=== PATIENT | female | born 1955 ===

== ENCOUNTER 2016-08-20 16:21 | Inpatient (IN) ==
--- NOTE | 2016-08-20 17:29 | Emergency Department Note ---
Yolande Lambert Mantricia, am scribing for, and in the presence of, Blayne Martinez MD 16:58. IMichelle Phillip K, MD, personally performed the services described in this documentation, ascribed by Xavier Lanier in my presence, and it is both accurate and complete [id number] . Arrival - Arrival Chief Complaint: Extremity Problem Stated Complaint: TRANSFER [facility] ED Nursing Triage Note: PT TRANSFERRED FROM [facility] FOR EVALUATION OF REDNESS/ CELLULITIS TO [facility]. PT FELL LAST FRIDAY AND HAS HAD INCREASING PAIN. ON ARRIVAL TO [facility] ER PT WAS FOUND TO HAVE O2 SAT IN 80'S AND TROPONIN OF 1.0. PT DOES HEMODIALYSIS M,W,F. Mode of Arrival: Stretcher Limitations: No Limitations Source: Patient Time Seen by Provider: 08/20/16 16:42 - History of Present Illness HPI Narrative: Pt is a 61 y/o female arriving to ED by EMS as a transfer from [place] for further evaluation of swollen LLE that onset 2 days ago. Pt states that she fell 5 days ago and the swelling and pain began 3 days after the fall. She had a normal white blood cell count at [place] and states that she dialyzes every M, W,F. She reports no other concerns. Onset (ago): day(s) Consistency: constant Severity: mild Severity scale (1-10): 3 Quality: aching Allergies/Adverse Reactions: Allergies Allergy/AdvReac Type Severity Reaction Status Date / Time cephalexin [From Keflex] Allergy RASH Verified 08/20/16 16:34 ciprofloxacin Allergy RASH Verified 08/20/16 16:34 Home Medications: Home Medications Medication Instructions Recorded Confirmed Type Aspirin [Ecotrin] 81 mg PO DAILY 08/11/14 10/18/15 History Losartan [Cozaar] 100 mg PO BID 08/11/14 10/18/15 History Minoxidil [Loniten] 2.5 mg PO DAILY 08/11/14 10/18/15 History hydrALAZINE TAB [Apresoline Tab] 100 mg PO BID 08/11/14 10/18/15 History Carvedilol [Coreg] 3.125 mg PO BID tablet 08/15/14 10/18/15 Rx Docusate Sodium Cap [Colace Cap] 100 mg PO BID capsule 08/15/14 10/18/15 Rx Epoetin Ash [Epogen] 18,000 unit IV .DIALYSIS vial 08/15/14 10/18/15 Rx Folic Acid Tab 1 mg PO DAILY tablet 08/15/14 10/18/15 Rx Gabapentin Cap/Tab [Neurontin 100 mg PO DAILY capsule 08/15/14 10/18/15 Rx Cap/Tab] Simvastatin [Zocor] 40 mg PO BEDTIME tablet 08/15/14 10/18/15 Rx Azithromycin Tab [Zithromax Tab] 250 mg PO DAILY #3 tablet 03/02/15 10/18/15 Rx Calcium Acetate [Phoslo] 2,001 mg PO TID W/MEALS 10/18/15 10/18/15 History Insulin Detemir [Levemir] 30 unit SUBCUT BEDTIME 10/18/15 10/18/15 History Review of System - Review of System 12 point system: reviewed and no additional remarkable complaints except as stated - Review of System Constitutional: Absent: chills, diaphoresis, fever Eyes: Absent: discharge, pain Head/Ears/Nose/Throat: Absent: earache, epistaxis Respiratory: Absent: cough, respiratory distress, wheezing Cardiovascular: Absent: chest pain, palpitations, dyspnea on exertion Gastrointestinal: Absent: abdominal pain, nausea, vomiting, diarrhea Genitourinary female: Absent: abnormal menses, dysuria Musculoskeletal: Present: leg pain (swelling). Absent: arm pain, back pain, neck pain Skin: Present: change in color (redness to LLE). Absent: rash, lesions Neurological: Absent: headache, weakness Psychiatric: Absent: anxiety, depression Medical,Surgical,& Family Hx - Medical History Cardio: History of: CHF, Hypertension Neurology: No history of: Seizures HEENT: History of: Ear Problem (ears pop) Endocrine: History of: Diabetes Mellitus (IDDM), Dyslipidemia Respiratory: History of: Asthma Hematology: History of: Anemia - Surgical History Abdominal Surgeries: Surgical HX of: EGD Reproductive Surgeries: Surgical HX of;: Hysterectomy - Family History Family History: Reports;: Family Cancer (sister), Family Diabetes (all of family ), Family Hypertension (all of family), Family Stroke (mother) Denies;: Family Anesthesia Reaction, Family Heart Disease, Family Psychiatric Problems - Social History Smoking Status: Never smoker Frequency of Alcohol Use: None Type of Drug Use: None Exam Vital Signs: Vital Signs Temperature 98.4 F 08/20/16 16:21 Pulse Rate 54 L 08/20/16 16:21 Respiratory Rate 18 08/20/16 16:21 Blood Pressure 156/58 08/20/16 16:21 O2 Sat by Pulse Oximetry 95 08/20/16 16:21 - General General appearance: alert, in no apparent distress - Head Head exam: Present: atraumatic, normocephalic, normal inspection - Eye Eye exam: Present: normal appearance, PERRL, EOMI - ENT ENT exam: Present: normal exam, normal oropharynx, mucous membranes moist, TM's normal bilaterally, normal external ear exam - Neck Neck exam: Present: normal inspection, full ROM, trachea midline. Absent: tenderness - Chest Chest inspection: Present: normal inspection, symmetric chest wall rise - Respiratory Respiratory exam: Present: normal lung sounds bilaterally - Cardiovascular Cardiovascular exam: Present: normal rhythm, bradycardia, normal heart sounds - Abdominal Exam Abdominal exam: Present: soft, normal bowel sounds. Absent: distention, tenderness, guarding, rebound - Extremities Exam Extremities exam: Present: tenderness (LLE), normal capillary refill, other ( swollen LLE) - Back Exam Back exam: Present: normal inspection, full ROM. Absent: tenderness - Neurological Exam Neurological exam: Present: alert, oriented X3, CN II-XII intact, normal gait, reflexes normal - Psychiatric Psychiatric exam: Present: normal affect, normal mood - Skin Skin exam: Present: warm (increased warmth knee-down), dry, intact, erythema ( LLE) Course Course Narrative: Patient discussed with the hospitalist. Results - Labs Lab Results: I have reviewed the patients labs (Patient's labs from [facility] reviewed. White blood count was normal.) - Diagnostic Findings Procedure: Ultrasound: image reviewed by me (No DVT) Disposition Clinical Impression: Cellulitis, End stage renal disease Case discussed with: patient Disposition: Still a Patient Condition: Guarded Additional Instructions: Admit to the hospitalist for IV antibiotics.
--- NOTE | 2016-08-20 17:39 | Ultrasound Report ---
Referring physician: Blayne Martinez Exam: Left lower extremity venous ultrasound Date: August 20, 2016 Comparison: Bilateral lower extremity venous ultrasound November 01, 2008 Reason: Edema left leg Technique: Duplex scan of the left lower extremity was performed using B-Mode/grayscale imaging, compression, Doppler spectral analysis and color flow. Ultrasound images were captured and stored. Findings: There is no evidence of thrombus within the left common femoral vein, greater saphenous vein, superficial femoral vein or popliteal vein. Normal compression and augmentation are present throughout. Normal color flow and spectral analysis are observed. Impression: No evidence of deep venous thrombosis within the left lower extremity. PROCEDURE INTERPRETED AT [facility] DEPARTMENT OF RADIOLOGY Final Report Signed by: Dr. Leonel Del Rosario
--- NOTE | 2016-08-20 17:48 | Hospitalist History & Physical ---
Assessment and Plan (1) Cellulitis Status: Acute Current Visit: Yes (2) End stage renal disease Problem details: No acute indication for HD today. Next scheduled for Friday. Status: Chronic Current Visit: Yes (3) Thrombocytopenia Status: Acute Current Visit: No (4) Anemia Status: Chronic Current Visit: No (5) Diabetes mellitus Status: Chronic Current Visit: No (6) Hypertension Status: Chronic Current Visit: No (7) Increase in troponins Status: Acute Assessment and plan: Our plan for this patient will be admitting the patient to a monitored/ telemetry bed. Repeating cardiac enzymes. following up on repeat labs performed in our emergency room. Consult nephrology for end-stage renal disease. IV antibiotics for her cellulitis. Continue home meds insulin sliding scale as needed. Per review of records patient's been thrombocytopenic for years this is a chronic medical problem for her Current Visit: Yes History of Present Illness Chief complaint: Lower extremity swelling and erythema History of present illness: Ms. Lujan is a 61 year old female with past medical history significant for end- stage renal disease, diabetes and hypertension who was in her normal state of health until last . Patient at that time reports that she fell and hurt her leg. It did not start really bothering her till Friday. She says that it became a little red and felt hot. She reports that she has mild shortness of breath. She patient denies any chest pain. Patient went to [facility] today. Patient was diagnosed with cellulitis and a bump in her troponins. She was sent up here for further evaluation. Labs ordered here still pending I was consulted to admit her through the emergency room. Home Medications Medication Instructions Recorded Confirmed Type Losartan [Cozaar] 50 mg PO DAILY 08/11/14 08/20/16 History Minoxidil [Loniten] 2.5 mg PO DAILY 08/11/14 08/20/16 History Folic Acid Tab 1 mg PO DAILY tablet 08/15/14 08/20/16 Rx Bacitracin Oint 1 applic TOP BID 08/20/16 08/20/16 History Gabapentin Cap/Tab [Neurontin 100 mg PO TID 08/20/16 08/20/16 History Cap/Tab] Polyethylene Glycol Powder 17 gm PO DAILY PRN 08/20/16 08/20/16 History [Miralax] Propylene Glycol/Peg 400 [Systane 1 drop BOTH EYES QID 08/20/16 08/20/16 History Ultra] Simvastatin 40 mg PO BEDTIME 08/20/16 08/20/16 History Allergies Allergy/AdvReac Type Severity Reaction Status Date / Time cephalexin [From Keflex] Allergy RASH Verified 08/20/16 16:34 ciprofloxacin Allergy RASH Verified 08/20/16 16:34 Medical,Surgical,& Family Hx - Medical History Cardio: History of: CHF, Hypertension Neurology: No history of: Seizures HEENT: History of: Ear Problem (ears pop) Endocrine: History of: Diabetes Mellitus (IDDM), Dyslipidemia Respiratory: History of: Asthma Hematology: History of: Anemia - Surgical History Abdominal Surgeries: Surgical HX of: EGD Reproductive Surgeries: Surgical HX of;: Hysterectomy - Family History Family History: Reports;: Family Cancer (sister), Family Diabetes (all of family ), Family Hypertension (all of family), Family Stroke (mother) Denies;: Family Anesthesia Reaction, Family Heart Disease, Family Psychiatric Problems - Social History Smoking Status: Never smoker Frequency of Alcohol Use: None Type of Drug Use: None 12 point system: reviewed and no additional remarkable complaints except as stated Exam - Constitutional Vitals: - General General appearance: alert, in no apparent distress very hard of hearing - Head Head exam: Present: atraumatic, normocephalic, normal inspection - Eye Eye exam: Present: normal appearance, PERRL, EOMI - ENT ENT exam: Present: normal exam, normal oropharynx, mucous membranes moist - Neck Neck exam: Present: normal inspection, full ROM, trachea midline. Absent: tenderness - Chest Chest inspection: Present: normal inspection, symmetric chest wall rise - Respiratory Respiratory exam: Present: normal lung sounds bilaterally - Cardiovascular Cardiovascular exam: Present: normal rhythm, bradycardia, normal heart sounds - Abdominal Exam Abdominal exam: Present: soft, normal bowel sounds. - Extremities Exam Extremities exam: Present: Patient's left lower extremity is tender it does appear to be with some erythema present - Back Exam Back exam: Present: normal inspection, full ROM. Absent: tenderness - Neurological Exam Neurological exam: Present: alert, oriented X3, CN II-XII intact, normal gait, reflexes normal - Psychiatric Psychiatric exam: Present: normal affect, normal mood - Skin Skin exam: Present: Her left lower extremity does feel warm from the knee down Results - Labs CBC & BMP: 08/20/16 17:44 Labs: Labs from outside facility displayed white count 8.0 hemoglobin 11.3 hematocrit 27.2 platelets 50 CK-MB 0.1 troponin I 0.0 calcium 9.5 creatinine 5.0 BUN 20 myoglobin 236 sodium 144 potassium 3.5 bicarb 32 chloride 104
[2016-08-20] MEDS ORDERED: GLUCAGON 1 MG VIAL IM PRN ×2 (17:54)
[2016-08-20] MEDS ORDERED: ACETAMINOPHEN 325 MG TABLET PO PRN (17:54)
[2016-08-20] MEDS ORDERED: ONDANSETRON 4 MG/2 ML VIAL IV PRN (17:54)
[2016-08-20] MEDS ORDERED: DEXTROSE 50% 25 GM/50 ML VIAL IV PRN ×2 (17:54)
[2016-08-20 18:01] LABS: Basophils % 0.2 % (0.0-0.8); Eosinophils # 0.1 10*3/uL (0.0-0.87); Eosinophils % 0.7 % (0.00-10.9); Hematocrit 26.7 VOL% (35.7-47.0); Hemoglobin 8.6 GM/DL (12.0-16.0); Immature Granulocytes % 0.7 %; Immature Granulocytes Absolute 0.06 #; Lymphocytes # 1.4 10*3/uL (1.4-4.0); Lymphocytes % 16.2 % (21.3-54.2); Mean Corpuscular HGB Conc 32.2 GM/DL (32-36); Mean Corpuscular Hemoglobin 32 PG (27-34); Mean Corpuscular Volume 98.5 FL (87-102); Mean Platelet Volume 13.6 FL (9.6-12.0); Monocytes # 0.8 10*3/uL (0.11-0.8); Monocytes % 9.4 % (1.7-12.7); Neutrophils # 6.2 10*3/uL (1.4-7.4); Neutrophils % 72.8 % (38.7-73.9); Platelet Count 46 T/CUMM (130-400); Red Blood Count 2.71 MC/CUMM (3.8-5.5); White Blood Count 8.5 T/CUMM (4-12)
[2016-08-20] MEDS ORDERED: POLYETHYLENE GLYCOL POWDER 255 GM BOTTLE PO PRN (18:02)
[2016-08-20] MEDS ORDERED: POLYETHYLENE GLYCOL POWDER 17 GM PACK PO PRN (18:09)
[2016-08-20 18:16] LABS: Calcium 8.8 MG/DL (8.5-10.1); Potassium 3.6 MMOL/L (3.5-5.1)
[2016-08-20] MEDS ORDERED: CLINDAMYCIN INJ 600 MG in PREMIX 1 EACH IV SCH (18:30)
[2016-08-20 18:44] LABS: Platelet Estimate Decreased
[2016-08-20] MEDS ORDERED: SIMVASTATIN 40 MG TABLET PO SCH (21:00)
[2016-08-20] MEDS: BACITRACIN OINT 28.35 GM TUBE TOP SCH (21:00)
[2016-08-20] MEDS: GABAPENTIN 100 MG CAPSULE PO SCH (21:00)
[2016-08-20] MEDS: CLINDAMYCIN INJ 600 MG in PREMIX 1 EACH IV SCH (21:00)
[2016-08-20 21:17] LABS: Troponin I Only 0.569 NG/ML (0.00-0.045)
[2016-08-21] MEDS: CLINDAMYCIN INJ 600 MG in PREMIX 1 EACH IV SCH ×3 (05:40→22:22)
[2016-08-21 05:56] LABS: Basophils % 0.3 % (0.0-0.8); Eosinophils # 0.1 10*3/uL (0.0-0.87); Eosinophils % 1.5 % (0.00-10.9); Hematocrit 25.2 VOL% (35.7-47.0); Hemoglobin 8.1 GM/DL (12.0-16.0); Immature Granulocytes % 0.5 %; Immature Granulocytes Absolute 0.03 #; Lymphocytes # 1.3 10*3/uL (1.4-4.0); Mean Corpuscular HGB Conc 32.1 GM/DL (32-36); Mean Corpuscular Hemoglobin 32 PG (27-34); Mean Platelet Volume 13.9 FL (9.6-12.0); Monocytes # 0.8 10*3/uL (0.11-0.8); Monocytes % 12.5 % (1.7-12.7); Neutrophils # 3.9 10*3/uL (1.4-7.4); Neutrophils % 64.2 % (38.7-73.9); Red Blood Count 2.52 MC/CUMM (3.8-5.5)
[2016-08-21 05:59] LABS: Platelet Count 45 T/CUMM (130-400)
[2016-08-21 06:13] LABS: Hypochromasia 1+; Ovalocytes Slight; Platelet Estimate Decreased
[2016-08-21 06:39] LABS: Troponin I Only 0.459 NG/ML (0.00-0.045)
[2016-08-21 06:50] LABS: Osmolality,Calculated 291.8 MOS/KG (273-304); Potassium 3.6 MMOL/L (3.5-5.1)
[2016-08-21] MEDS: FOLIC ACID 1 MG TABLET PO SCH (08:31)
[2016-08-21] MEDS: BACITRACIN OINT 28.35 GM TUBE TOP SCH ×2 (08:31→20:28)
[2016-08-21] MEDS: PANTOPRAZOLE 40 MG TABLET PO SCH (08:31)
[2016-08-21] MEDS: GABAPENTIN 100 MG CAPSULE PO SCH (08:31)
[2016-08-21] MEDS: MINOXIDIL 2.5 MG TABLET PO SCH (08:32)
[2016-08-21] MEDS: LOSARTAN 50 MG TABLET PO SCH (08:32)
--- NOTE | 2016-08-21 08:57 | EKG Report ---
Stationary ECG Study [facility] Test Date: 08/21/2016 8:56:32 AM Pat Name: SHREYA ALEXIS Department: Room: 543 Gender: F [employer] Foreman: : 1955 Requested by: Millie Littlejohn Order Number: [id number] Reading MD: BLAYNE GARCIA Intervals [place] Rate: 44 P: 54 DC: 229 QRS: 149 QRSD: 100 T: 194 QT: 496 QTc: 446 Interpretive Statements SINUS BRADYCARDIA WITH First-degree A-V B at 44 bpm PATTERN CONSISTENT WITH PULMONARY DISEASE POSSIBLE RIGHT VENTRICULAR HYPERTROPHY ST DEVIATION AND MODERATE T-WAVE ABNORMALITY, CONSIDER ISCHEMIA Electronically Signed On 08-26-16 15:29:33 CDT by BLAYNE GARCIA [email or web address]
[2016-08-21] MEDS: POLYVINYL ALCOHOL 1.4% OPH SOLN 15 ML BOTTLE BOTH EYES SCH ×4 (09:40→20:28)
--- NOTE | 2016-08-21 13:36 | Hospitalist Progress Note ---
Assessment and Plan (1) End stage renal disease Status: Chronic Assessment and plan: on HD, Nephrology is following Current Visit: Yes (2) Hypertension Status: Chronic Assessment and plan: stable on current meds Current Visit: No (3) Cellulitis Problem details: Symptomatically improved. Consider po clinda. Status: Acute Assessment and plan: continue with IV antibiotics. Will get BC Current Visit: Yes (4) Diabetes mellitus Status: Chronic Assessment and plan: continue with current regime, get HbA1c level Current Visit: No (5) Increase in troponins Status: Acute Assessment and plan: cardiology is following Current Visit: Yes (6) Dyslipidemia Status: Chronic Assessment and plan: on statins Current Visit: Yes Hospitalist: Subjective Interval history: Patient went for dialysis today. No new issues Exam - Constitutional Vitals: Period Temp Pulse Resp BP Sys/Cordero Pulse Ox Last 24 Hr 97.4 F-99.0 F 43-56 18-20 125-170/53-101 88-100 General appearance: no acute distress - Head Head exam: Present: normal inspection - Respiratory Respiratory exam: Present: clear to auscultation bilaterally - Cardiovascular Cardiovascular exam: Present: regular rate and rhythm - GI/Abdominal GI/Abdominal exam: Present: normal bowel sounds - Extremities Exam Extremities exam: Present: normal inspection Results - Labs CBC & BMP: 08/22/16 07:06 08/22/16 07:06 Lab Results: I have reviewed the past 24 hour labs Quality Measures - VTE Contraindication to Pharmacological VTE Prophylaxis: Thrombocytopenia Contraindication to Mechanical VTE Prophylaxis: Local Inflammation
--- NOTE | 2016-08-21 13:38 | Nephrology Consult Note ---
History of Present Illness Chief complaint: Referred for ESRD on CHD History of present illness: Ms. Lujan is a 61 year old female admitted for LLE pain s/p fall last week. Normal WBC, no fever/chills. ESRD 2' presume diabetic nephropathy on chronic hemodialysis (CHD) MWF at [facility] unit, via left forearm fistula. EDW 74kg. Chronic thrombocytopenia, 45k platelets today. Seen on dialysis. Denies SOB. Admits to pain on palpation of LLE. U/S neg for DVT. Home Medications Medication Instructions Recorded Confirmed Type Losartan [Cozaar] 50 mg PO DAILY 08/11/14 08/20/16 History Minoxidil [Loniten] 2.5 mg PO DAILY 08/11/14 08/20/16 History Folic Acid Tab 1 mg PO DAILY tablet 08/15/14 08/20/16 Rx Bacitracin Oint 1 applic TOP BID 08/20/16 08/20/16 History Gabapentin Cap/Tab [Neurontin 100 mg PO TID 08/20/16 08/20/16 History Cap/Tab] Polyethylene Glycol Powder 17 gm PO DAILY PRN 08/20/16 08/20/16 History [Miralax] Propylene Glycol/Peg 400 [Systane 1 drop BOTH EYES QID 08/20/16 08/20/16 History Ultra] Simvastatin 40 mg PO BEDTIME 08/20/16 08/20/16 History Allergies Allergy/AdvReac Type Severity Reaction Status Date / Time cephalexin [From Keflex] Allergy RASH Verified 08/20/16 16:34 ciprofloxacin Allergy RASH Verified 08/20/16 16:34 Medical,Surgical,& Family Hx - Medical History Cardio: History of: CHF, Hypertension Neurology: No history of: Seizures HEENT: History of: Ear Problem (ears pop) Endocrine: History of: Diabetes Mellitus (IDDM), Dyslipidemia Respiratory: History of: Asthma Renal: History of: Dialysis (t-t-s), Renal Failure Hematology: History of: Anemia - Surgical History Abdominal Surgeries: Surgical HX of: EGD Reproductive Surgeries: Surgical HX of;: Hysterectomy - Family History Family History: Reports;: Family Cancer (sister), Family Diabetes (all of family ), Family Hypertension (all of family), Family Stroke (mother) Denies;: Family Anesthesia Reaction, Family Heart Disease, Family Hematology , Family Psychiatric Problems - Social History Smoking Status: Never smoker Frequency of Alcohol Use: None Type of Drug Use: None Exam - Vital Signs Vital signs: Period Temp Pulse Resp BP Sys/Cordero Pulse Ox Last 24 Hr 97.4 F-99.0 F 43-56 18-20 125-170/53-101 88-100 - General Appearance General appearance: well-developed, chronically ill EENT: ATNC, PERRL, hearing diminished (recently evaluated by ENT for severe hearing loss, they contemplated high dose steroids, but held off due to DM2, Dr Downey) Neck: no JVD, no thyromegaly Respiratory: no kyphosis, clear Cardiology: no murmurs, no rub Gastrointestinal: normoactive bowel sounds, no tenderness Integumentary: no rash, warm and dry Neurologic: no focal deficit, no asterixis, alert and oriented x3 Musculoskeletal: no deformities, erythema (LLE), no cyanosis Psychiatric: mood/affect appropriate, cooperative Results - Labs CBC & BMP: 08/21/16 05:20 08/21/16 05:20 Assessment and Plan (1) ESRD (end stage renal disease) on dialysis Problem details: Routine CHD today. Hold heparin due to thrombocytopenia ( worsening, was 60k last fall). Status: Acute Current Visit: Yes (2) Thrombocytopenia Status: Acute Current Visit: No (3) Anemia Problem details: macrocytic. adequate iron stores by monthly dialysis unit labs. check B12/folate. Status: Chronic Current Visit: No
[2016-08-21] MEDS ORDERED: EPOETIN ALFA 10,000 UNIT/1 ML VIAL IV PRN (15:47)
--- NOTE | 2016-08-21 16:23 | Cardiology Consult Note ---
I, Ayaka Pendleton RN, am scribing for, and in the presence of, Solis Garcia MD 16:23. Assessment and Plan - Time spent with patient Time spent with patient: Greater than 30 minutes (Due to assessment, planning, documentation, and medication review) (1) Bradycardia Status: Acute Assessment and plan: INITIAL CONSULT AUGUST 21, 2016: ASSESSMENT/PLAN: 1. 61-year-old [place] female with hypertension, diabetes, dyslipidemia, long history of bradycardia with heart rate in the upper 40s at rest (had treadmill testing for this and I am seeing the last couple years) admitted with lower extremity cellulitis, and incidentally noted to have minimal troponin elevation with no rise and fall; this is almost certainly related to her end-stage renal failure and hypertension, etc. She has no symptoms of acute coronary syndrome. 2. Continue sinus bradycardia, with nonconducted PACs with first-degree A-V B; we will place Holter monitor to evaluate rather she is having some episodes of second-degree AV block 3. Check follow-up cardiac panel electrolytes in the morning Current Visit: Yes (2) Cellulitis Status: Acute Current Visit: Yes (3) Dyslipidemia Status: Chronic Current Visit: Yes (4) End stage renal disease Problem details: No acute indication for HD today. Next scheduled for Friday. Status: Chronic Current Visit: Yes (5) Diabetes mellitus Status: Chronic Current Visit: No (6) Hypertension Status: Chronic Current Visit: No History of Present Illness - Data of Consult Patient: known to practice within the last 3 years Consult date: 08/21/16 Requesting Physician: Norbert Barragan Primary care physician: [facility] - Consult Narrative Reason for consult: bradycardia, AV block History of present illness: PRIMARY PV DESIGN ENGINEER: DR. FRANCIS DAVE and TAVIA RAMIREZ PCP: [facility] CARDIOLOGY CONSULT NOTE: BRADYCARDIA R/O AV BLOCK, ABNORMAL CTNI Ms. Lujan is a 61 year old NA female followed by Dr. Dave for cardiology. Risk factors include: age, diabetes, dyslipidemia, and hypertension. Other past medical history includes chronic kidney disease with routine hemodialysis, anemia, palpitations, and bradycardia. Patient was transferred from [facility] to [facility] ER on 08/20 for further evaluation of left lower extremity cellulitis. Also, while at [facility] she was noted to have an oxygen saturation level in the 80s and a troponin level of 1.0. Patient reported that she fell approximately 5 days ago at home, and 3 days later she noticed a worsening in swelling and pain of her lower left leg. She was afebrile with a normal white blood cell count. Patient was admitted to [facility] floor with environmental monitoring technician per hospital medicine for further observation and treatment. Patient was noted to have some bradycardia overnight while at rest, and there was concern for AV block. Cardiology has been consulted for further evaluation. Review of [facility] clinic records shows patient had a witnessed cardiac arrest labeled as PEA in 2014. She was admitted and evaluated at [facility], and no cause was found for her event. Patient did have some bradycardia then but did not have any significant arrhythmia. She had no angina or heart failure. Patient was last seen in clinic in August 2015, and at that time she had Holter monitor after experiencing bradycardia. Holter revealed minimum pulse rate of 43 bpm with maximum of 78 bpm and average of 63. She also had some rare PVCs with no significant runs or pauses and occasional PAC and some nonconducted pauses up to 2.1 seconds. Labs reviewed. H&H is 8.1 and 25.2. Platelet count 45,000. Potassium is 3.6. Troponin level 2 0.569 and 0.459 with normal CPK. Patient seen and examined. She is awake and alert, and she is not experiencing any acute distress at this time. Patient is a very pleasant and social, but she is noted to be extremely hard of hearing. Patient denies having any recent or current chest pain or dyspnea at rest or with exertion. Denies orthopnea, PND, syncope, confusion, or dizziness. Patient denies a history of obstructive sleep apnea, but does admit to being told she snores at night, wakes herself up due to snoring, and does have some daytime somnolence. No recent cough, fever, or chills. She also tells me that she is in the process of kidney transplant, and she [facility] EKG this morning reveals sinus bradycardia with first-degree AV block. Her cardiac monitoring has revealed pulse rates in the 40s and 50s. CC: Analilia Galindo MD - Home Medications and Allergies Home Medications: Home Medications Medication Instructions Recorded Confirmed Type Losartan [Cozaar] 50 mg PO DAILY 08/11/14 08/20/16 History Minoxidil [Loniten] 2.5 mg PO DAILY 08/11/14 08/20/16 History Folic Acid Tab 1 mg PO DAILY tablet 08/15/14 08/20/16 Rx Bacitracin Oint 1 applic TOP BID 08/20/16 08/20/16 History Gabapentin Cap/Tab [Neurontin 100 mg PO TID 08/20/16 08/20/16 History Cap/Tab] Polyethylene Glycol Powder 17 gm PO DAILY PRN 08/20/16 08/20/16 History [Miralax] Propylene Glycol/Peg 400 [Systane 1 drop BOTH EYES QID 08/20/16 08/20/16 History Ultra] Simvastatin 40 mg PO BEDTIME 08/20/16 08/20/16 History Allergies/Adverse Reactions: Allergies Allergy/AdvReac Type Severity Reaction Status Date / Time cephalexin [From Keflex] Allergy RASH Verified 08/20/16 16:34 ciprofloxacin Allergy RASH Verified 08/20/16 16:34 - Constitutional Constitutional: Present: as per HPI - EENT Eyes: Present: as per HPI Nose, mouth and throat: Present: as per HPI - Cardiovascular Cardiovascular: Present: as per HPI - Respiratory Respiratory: Present: as per HPI - Gastrointestinal Gastrointestinal: Present: as per HPI - Genitourinary Genitourinary: Present: as per HPI - Musculoskeletal Musculoskeletal: Present: as per HPI - Neurological Neurological: Present: as per HPI - Psychiatric Psychiatric: Present: as per HPI - Endocrine Endocrine: Present: as per HPI - Hematologic/Lymphatic Hematologic/Lymphatic: Present: as per HPI Medical,Surgical,& Family Hx - Medical History Cardio: History of: CHF, Hypertension No history of: CAD, ND, Pacemaker, PVD Psychological: No history of: Anxiety Disorders, Depression Neurology: No history of: Seizures HEENT: History of: Ear Problem (ears pop; hearing loss) Endocrine: History of: Diabetes Mellitus (IDDM), Dyslipidemia No history of: Thyroid Disorder Respiratory: History of: Asthma No history of: COPD Renal: History of: Dialysis (M, W, F), Renal Failure Gastrointestinal: No history of: GERD, Gastrointestinal Bleed Hematology: History of: Anemia - Surgical History Cardiac Surgeries: Sugical HX of: Cardiac Catheterization Patient Denies: Cardiac Surgery, Internal Defibrillator Abdominal Surgeries: Surgical HX of: EGD Reproductive Surgeries: Surgical HX of;: Hysterectomy - Family History Family History: Reports;: Family Cancer (sister), Family Diabetes (all of family ), Family Hypertension (all of family), Family Stroke (mother) Denies;: Family Anesthesia Reaction, Family Heart Disease, Family Hematology , Family Psychiatric Problems - Social History Smoking Status: Never smoker Frequency of Alcohol Use: None Type of Drug Use: None Physical Examination Vital Signs Temp Pulse Resp BP Pulse Ox 98.4 F 54 L 18 156/58 95 08/20/16 16:21 08/20/16 16:21 08/20/16 16:21 08/20/16 16:21 08/20/16 16:21 General: Present: No Apparent Distress HEENT: Present: PERRL, Normocephaly, Mucus Membranes Moist. Absent: Jaundice Neck: Present: Supple Neck, Midline Trachea, No JVD/HJR, No Bruit Cardiac: Present: Reg Rate and Rhythm, No Murmur. Absent: Tachycardia, Bradycardia Lungs: Present: Normal Exam, Clear Ascult./Percussion, Oxygen, No Wheeze, Rales , Rhonchi Neuro: Present: Grossly Intact. Absent: Numbness, Tingling, Weakness, Resting Tremor, Essential Tremor Abdomen: Present: Soft, Active Bowel Sounds, No Masses, No Pulsations/Bruits. Absent: Tender, Firm, Distended Skin: Present: Clear. Absent: Rash, Suspicious Lesions Musculoskeletal: Present: No Fluid Collection, Normal Range of Motion Extremities: Present: No Clubbing, No Cyanosis, No Edema, Normal Upper Extr. Pulses (2+ bilaterally), Normal Lower Extr. Pulses (2+ bilaterally), Capillary Refill (Normal), Other (Left lower extremity erythematous and tender to touch.) Result/EKG - Labs CBC & BMP: 08/21/16 05:20 08/21/16 05:20 Lab Results: I have reviewed the past 24 hour labs Labs: Laboratory Results - last 24 hr 08/20/16 08/20/16 08/20/16 17:44 17:44 19:38 WBC 8.5 RBC 2.71 L Hgb 8.6 L Hct 26.7 L MCV 98.5 MCH 32 MCHC 32.2 RDW 15.0 Plt Count 46 L MPV 13.6 H Neut % (Auto) 72.8 Lymph % (Auto) 16.2 L [place] % (Auto) 9.4 Eos % (Auto) 0.7 Baso % (Auto) 0.2 Neut # (Auto) 6.2 Lymph # (Auto) 1.4 [place] # (Auto) 0.8 Eos # (Auto) 0.1 Baso # (Auto) 0.0 Immature Gran % 0.7 Nucleated RBC % 0.0 Immature Gran # 0.06 Nucleated RBCs # 0.00 Platelet Estimate Decreased Hypochromasia Ovalocytes Morphology Comment Sodium 143 Potassium 3.6 Chloride 105 Carbon Dioxide 31 Anion Gap 10.6 BUN 23 H Creatinine 5.40 H GFR Calculation 8 BUN/Creatinine Ratio 4.00 L Glucose 104 POC Glucose 103 Calculated Osmolality 288.0 Calcium 8.8 Total Creatine Kinase CK-MB (CK-2) Troponin I 08/20/16 08/21/16 08/21/16 20:40 05:20 05:20 WBC 6.0 RBC 2.52 L Hgb 8.1 L Hct 25.2 L MCV 100.0 MCH 32 MCHC 32.1 RDW 15.0 Plt Count 45 L MPV 13.9 H Neut % (Auto) 64.2 Lymph % (Auto) 21.0 L [place] % (Auto) 12.5 Eos % (Auto) 1.5 Baso % (Auto) 0.3 Neut # (Auto) 3.9 Lymph # (Auto) 1.3 L [place] # (Auto) 0.8 Eos # (Auto) 0.1 Baso # (Auto) 0.0 Immature Gran % 0.5 Nucleated RBC % 0.0 Immature Gran # 0.03 Nucleated RBCs # 0.00 Platelet Estimate Decreased Hypochromasia 1+ Ovalocytes Slight Morphology Comment Sodium Potassium Chloride Carbon Dioxide Anion Gap BUN Creatinine GFR Calculation BUN/Creatinine Ratio Glucose POC Glucose Calculated Osmolality Calcium Total Creatine Kinase 46 32 D CK-MB (CK-2) 1.2 1.1 Troponin I 0.569 H 0.459 H 08/21/16 08/21/16 05:20 07:28 WBC RBC Hgb Hct MCV MCH MCHC RDW Plt Count MPV Neut % (Auto) Lymph % (Auto) [place] % (Auto) Eos % (Auto) Baso % (Auto) Neut # (Auto) Lymph # (Auto) [place] # (Auto) Eos # (Auto) Baso # (Auto) Immature Gran % Nucleated RBC % Immature Gran # Nucleated RBCs # Platelet Estimate Hypochromasia Ovalocytes Morphology Comment Sodium 144 Potassium 3.6 Chloride 106 Carbon Dioxide 29 Anion Gap 12.6 BUN 27 H Creatinine 6.30 H GFR Calculation 7 BUN/Creatinine Ratio 4.00 L Glucose 121 H POC Glucose 150 H Calculated Osmolality 291.8 Calcium 8.0 L Total Creatine Kinase CK-MB (CK-2) Troponin I - Diagnostic Findings Procedure: Chest x-ray: image reviewed by me, report reviewed by me - EKG EKG results: interpreted by me EKG shows: sinus rhythm Quality Measures - VTE Contraindication to Pharmacological VTE Prophylaxis: Thrombocytopenia Contraindication to Mechanical VTE Prophylaxis: Local Inflammation Jose Lambert Randall Scott, MD, personally performed the services described in this documentation, ascribed by Ayaka Pendleton RN in my presence, and it is both accurate and complete [id number] .
[2016-08-21] MEDS: INSULIN LISPRO 100 UNIT/ML SUBCUT SCH ×2 (17:23→20:27)
[2016-08-21 18:36] LABS: Free T4 (Free Thyroxine) 1.44 NG/DL (0.76-1.46); Thyroid Stimulating Hormone 1.33 uIU/ml (0.358-3.74)
[2016-08-21] MEDS: ATORVASTATIN 20 MG TABLET PO SCH (20:27)
[2016-08-21] MEDS: GABAPENTIN 300 MG CAPSULE PO SCH (20:27)
[2016-08-22] MEDS: CLINDAMYCIN INJ 600 MG in PREMIX 1 EACH IV SCH ×3 (06:40→21:17)
[2016-08-22 07:30] LABS: Basophils % 0.4 % (0.0-0.8); Eosinophils # 0.1 10*3/uL (0.0-0.87); Eosinophils % 1.4 % (0.00-10.9); Hematocrit 25.5 VOL% (35.7-47.0); Hemoglobin 8.2 GM/DL (12.0-16.0); Immature Granulocytes % 0.8 %; Immature Granulocytes Absolute 0.04 #; Lymphocytes # 1.2 10*3/uL (1.4-4.0); Lymphocytes % 24.6 % (21.3-54.2); Mean Corpuscular HGB Conc 32.2 GM/DL (32-36); Mean Corpuscular Hemoglobin 31 PG (27-34); Mean Corpuscular Volume 96.2 FL (87-102); Mean Platelet Volume 13.2 FL (9.6-12.0); Monocytes # 0.5 10*3/uL (0.11-0.8); Monocytes % 10.5 % (1.7-12.7); Neutrophils # 3.1 10*3/uL (1.4-7.4); Neutrophils % 62.3 % (38.7-73.9); Platelet Count 45 T/CUMM (130-400); Red Blood Count 2.65 MC/CUMM (3.8-5.5); Red Cell Distribution Width 14.8 % (9.3-17.3)
[2016-08-22 08:04] LABS: Elliptocytes Few; Hypochromasia 1+; Platelet Estimate Decreased
[2016-08-22 08:05] LABS: Albumin 2.9 G/DL (3.4-5.0); Calcium 7.8 MG/DL (8.5-10.1); Osmolality,Calculated 277.7 MOS/KG (273-304); Phosphorous 2.5 MG/DL (2.5-4.9); Potassium 3.8 MMOL/L (3.5-5.1)
[2016-08-22 08:08] LABS: Blood Urea Nitrogen 15 MG/DL (7-18); Calcium 7.6 MG/DL (8.5-10.1); Cholesterol < 50 MG/DL (50-200); Glucose 135 MG/DL (74-106); HDL Cholesterol 26 MG/DL (40-60); Magnesium 2.1 MG/DL (1.8-2.4); Osmolality,Calculated 277.7 MOS/KG (273-304); Potassium 3.8 MMOL/L (3.5-5.1); Risk Ratio 1.92; Sodium 138 MMOL/L (136-145); Triglycerides 69 MG/DL (2-150); VLDL CHOLESTEROL 13.8 MG/DL
[2016-08-22 08:13] LABS: Folate > 24.0 NG/ML (5.4-24.0); Vitamin B12 525 PG/ML (211-911)
[2016-08-22 08:28] LABS: Troponin I Only 0.275 NG/ML (0.00-0.045)
--- NOTE | 2016-08-22 09:39 | Nephrology Progress Note ---
Nephrology - PN: Subj Interval history: Pt states leg pain better. Denies SOB. No complications from HD yesterday. Asks "Can I go home?" Exam (PN)-Nephrology - Vital Signs Vital signs: Period Temp Pulse Resp BP Sys/Cordero Pulse Ox Last 24 Hr 97.4 F-99.0 F 46-72 18-20 128-137/46-74 92-100 - General Appearance General appearance: well-developed, chronically ill EENT: ATNC, PERRL, hearing diminished Neck: no JVD, no thyromegaly Respiratory: no kyphosis, clear Cardiology: no murmurs, no rub, no edema Gastrointestinal: normoactive bowel sounds, no tenderness Integumentary: no rash, warm and dry Neurologic: no focal deficit, no asterixis, alert and oriented x3 Musculoskeletal: no deformities, erythema, warmth Psychiatric: mood/affect appropriate, cooperative - Lab 08/22/16 07:06 08/22/16 07:06 Most recent lab results Calcium 7.6 MG/DL (8.5-10.1) L 08/22/16 07:06 Phosphorus 2.5 MG/DL (2.5-4.9) 08/22/16 07:06 Magnesium 2.1 MG/DL (1.8-2.4) 08/22/16 07:06 Assessment and Plan (1) ESRD (end stage renal disease) on dialysis Problem details: No acute indication for HD today. Status: Acute Assessment and plan: Next scheduled routine CHD tomorrow. Current Visit: Yes (2) Thrombocytopenia Status: Acute Current Visit: No (3) Anemia Problem details: macrocytic. adequate iron stores by monthly dialysis unit labs. check B12/folate. Status: Chronic Current Visit: No (4) Cellulitis Problem details: Symptomatically improved. Consider po clinda. Status: Acute Current Visit: Yes
[2016-08-22] MEDS: INSULIN LISPRO 100 UNIT/ML SUBCUT SCH ×4 (09:58→21:12)
[2016-08-22] MEDS: FOLIC ACID 1 MG TABLET PO SCH (09:58)
[2016-08-22] MEDS: BACITRACIN OINT 28.35 GM TUBE TOP SCH ×2 (09:58→21:18)
[2016-08-22] MEDS: PANTOPRAZOLE 40 MG TABLET PO SCH (09:58)
[2016-08-22] MEDS: POLYVINYL ALCOHOL 1.4% OPH SOLN 15 ML BOTTLE BOTH EYES SCH ×4 (09:58→21:18)
[2016-08-22] MEDS: MINOXIDIL 2.5 MG TABLET PO SCH (09:59)
[2016-08-22] MEDS: LOSARTAN 50 MG TABLET PO SCH (09:59)
--- NOTE | 2016-08-22 15:19 | Hospitalist Progress Note ---
Assessment and Plan (1) End stage renal disease Status: Chronic Assessment and plan: on HD, Nephrology is following Current Visit: Yes (2) Hypertension Status: Chronic Assessment and plan: will add Norvasc 5mg daily, follow response Current Visit: No (3) Cellulitis Problem details: Symptomatically improved. Consider po clinda. Status: Acute Assessment and plan: Improving.Continue with IV antibiotics. BC-no growth so far Current Visit: Yes (4) Diabetes mellitus Status: Chronic Assessment and plan: continue with current regime, HbA1c level-5.3 Current Visit: No (5) Increase in troponins Status: Acute Assessment and plan: cardiology is following Current Visit: Yes (6) Dyslipidemia Status: Chronic Assessment and plan: on statins Current Visit: Yes (7) Bradycardia Status: Acute Assessment and plan: Patient is on Holter monitor. TSH is normal Follow cardiology's recommendations Current Visit: Yes Hospitalist: Subjective Interval history: Patient was seen sitting up in a chair. She had a holter monitor on.She denies Chestpain, SOB and feels good Exam - Constitutional Vitals: Period Temp Pulse Resp BP Sys/Cordero Pulse Ox Last 24 Hr 98.1 F-99.0 F 52-72 18-20 128-181/46-69 92-100 General appearance: no acute distress - Head Head exam: Present: normal inspection - Respiratory Respiratory exam: Present: clear to auscultation bilaterally - Cardiovascular Cardiovascular exam: Present: regular rate and rhythm - GI/Abdominal GI/Abdominal exam: Present: normal bowel sounds - Extremities Exam Extremities exam: Present: normal inspection Results - Labs CBC & BMP: 08/22/16 07:06 08/22/16 07:06 Lab Results: I have reviewed the past 24 hour labs Quality Measures - VTE Contraindication to Pharmacological VTE Prophylaxis: Thrombocytopenia Contraindication to Mechanical VTE Prophylaxis: Local Inflammation
[2016-08-22] MEDS: CALCITRIOL 0.25 MCG CAPSULE PO SCH (16:28)
[2016-08-22] MEDS: amLODIPine 5 MG TABLET PO SCH (16:29)
[2016-08-22] MEDS: ATORVASTATIN 20 MG TABLET PO SCH (21:17)
[2016-08-22] MEDS: GABAPENTIN 300 MG CAPSULE PO SCH (21:17)
[2016-08-23] MEDS: CLINDAMYCIN INJ 600 MG in PREMIX 1 EACH IV SCH ×3 (06:16→22:02)
[2016-08-23 06:41] LABS: Basophils % 0.4 % (0.0-0.8); Eosinophils # 0.1 10*3/uL (0.0-0.87); Eosinophils % 2.7 % (0.00-10.9); Hemoglobin 8.8 GM/DL (12.0-16.0); Immature Granulocytes % 0.9 %; Immature Granulocytes Absolute 0.04 #; Lymphocytes # 0.9 10*3/uL (1.4-4.0); Lymphocytes % 19.7 % (21.3-54.2); Mean Corpuscular HGB Conc 32.6 GM/DL (32-36); Mean Corpuscular Hemoglobin 31 PG (27-34); Mean Corpuscular Volume 95.7 FL (87-102); Mean Platelet Volume 12.5 FL (9.6-12.0); Monocytes # 0.6 10*3/uL (0.11-0.8); Monocytes % 14.1 % (1.7-12.7); Neutrophils # 2.8 10*3/uL (1.4-7.4); Neutrophils % 62.2 % (38.7-73.9); Platelet Count 52 T/CUMM (130-400); Red Blood Count 2.82 MC/CUMM (3.8-5.5); Red Cell Distribution Width 14.8 % (9.3-17.3); White Blood Count 4.5 T/CUMM (4-12)
[2016-08-23 07:12] LABS: Calcium 7.6 MG/DL (8.5-10.1); Magnesium 2.3 MG/DL (1.8-2.4); Potassium 4.2 MMOL/L (3.5-5.1)
[2016-08-23 07:21] LABS: Eosinophils 5 % (0-10); Lymphocytes 22 % (20-55); Segmented Neutrophils 60 % (50-85); Total Cells Counted 100
[2016-08-23 07:22] LABS: Hypochromasia 1+; Ovalocytes Slight; Platelet Estimate Decreased
[2016-08-23 07:37] LABS: Albumin 3.1 G/DL (3.4-5.0); Calcium 7.8 MG/DL (8.5-10.1); Phosphorous 3.8 MG/DL (2.5-4.9); Potassium 4.2 MMOL/L (3.5-5.1)
[2016-08-23] MEDS: INSULIN LISPRO 100 UNIT/ML SUBCUT SCH ×4 (09:15→20:32)
[2016-08-23] MEDS: POLYVINYL ALCOHOL 1.4% OPH SOLN 15 ML BOTTLE BOTH EYES SCH ×4 (09:15→22:02)
[2016-08-23] MEDS: BACITRACIN OINT 28.35 GM TUBE TOP SCH ×2 (09:15→20:31)
[2016-08-23] MEDS: amLODIPine 5 MG TABLET PO SCH (09:16)
[2016-08-23] MEDS: PANTOPRAZOLE 40 MG TABLET PO SCH (09:16)
[2016-08-23] MEDS: LOSARTAN 50 MG TABLET PO SCH (09:16)
[2016-08-23] MEDS: FOLIC ACID 1 MG TABLET PO SCH (09:16)
[2016-08-23] MEDS: CALCITRIOL 0.25 MCG CAPSULE PO SCH (09:16)
[2016-08-23] MEDS: MINOXIDIL 2.5 MG TABLET PO SCH (09:16)
--- NOTE | 2016-08-23 09:16 | Dialysis Note ---
Dialysis Note - Dialysis Note Ms. Godinez is seen during her hemodialysis. She says that she is "well". She says her foot no longer hurts and she hopes to go home. Her dialysis is going well and blood pressure remained stable during dialysis.
--- NOTE | 2016-08-23 16:26 | Hospitalist Progress Note ---
Assessment and Plan (1) End stage renal disease Status: Chronic Assessment and plan: on HD- had a session today, Nephrology is following Current Visit: Yes (2) Hypertension Status: Chronic Assessment and plan: will increase Norvasc to 10mg daily, follow response Current Visit: No (3) Cellulitis Problem details: Symptomatically improved. Consider po clinda. Status: Acute Assessment and plan: Improving.Continue with IV antibiotics. BC-no growth so far.Doppler negative for a DVT. Current Visit: Yes (4) Diabetes mellitus Status: Chronic Assessment and plan: continue with current regime, HbA1c level-5.3 Current Visit: No (5) Increase in troponins Status: Acute Assessment and plan: cardiology is following Current Visit: Yes (6) Dyslipidemia Status: Chronic Assessment and plan: on statins Current Visit: Yes (7) Bradycardia Status: Acute Assessment and plan: Patient is on Holter monitor. TSH is normal Follow cardiology's recommendations Current Visit: Yes Hospitalist: Subjective Interval history: Patient went for dialysis today.No new issues Exam - Constitutional Vitals: Period Temp Pulse Resp BP Sys/Cordero Pulse Ox Last 24 Hr 97.5 F-98.4 F 48-53 16-20 142-162/60-74 92-100 General appearance: no acute distress - Head Head exam: Present: normal inspection - Respiratory Respiratory exam: Present: clear to auscultation bilaterally - Cardiovascular Cardiovascular exam: Present: regular rate and rhythm - GI/Abdominal GI/Abdominal exam: Present: normal bowel sounds - Extremities Exam Extremities exam: Present: normal inspection Results - Labs CBC & BMP: 08/23/16 06:20 08/23/16 06:20 Lab Results: I have reviewed the past 24 hour labs Quality Measures - VTE Contraindication to Pharmacological VTE Prophylaxis: Thrombocytopenia Contraindication to Mechanical VTE Prophylaxis: Local Inflammation
[2016-08-23] MEDS ORDERED: amLODIPine 10 MG TABLET PO SCH (16:27)
[2016-08-23] MEDS ORDERED: ENOXAPARIN 30 MG/0.3 ML SYRINGE SUBCUT SCH (18:00)
[2016-08-23] MEDS: ATORVASTATIN 20 MG TABLET PO SCH (20:30)
[2016-08-23] MEDS: GABAPENTIN 300 MG CAPSULE PO SCH (20:31)
[2016-08-24] MEDS: CLINDAMYCIN INJ 600 MG in PREMIX 1 EACH IV SCH ×2 (06:53→14:06)
[2016-08-24 07:11] LABS: Basophils % 0.4 % (0.0-0.8); Eosinophils # 0.1 10*3/uL (0.0-0.87); Hematocrit 26.4 VOL% (35.7-47.0); Hemoglobin 8.5 GM/DL (12.0-16.0); Immature Granulocytes % 0.9 %; Immature Granulocytes Absolute 0.04 #; Lymphocytes # 0.9 10*3/uL (1.4-4.0); Lymphocytes % 20.2 % (21.3-54.2); Mean Corpuscular HGB Conc 32.2 GM/DL (32-36); Mean Corpuscular Hemoglobin 32 PG (27-34); Mean Corpuscular Volume 98.1 FL (87-102); Monocytes # 0.5 10*3/uL (0.11-0.8); Monocytes % 10.6 % (1.7-12.7); Neutrophils % 65.9 % (38.7-73.9); Platelet Count 51 T/CUMM (130-400); Red Blood Count 2.69 MC/CUMM (3.8-5.5); Red Cell Distribution Width 14.9 % (9.3-17.3); White Blood Count 4.6 T/CUMM (4-12)
[2016-08-24 07:38] LABS: Calcium 7.8 MG/DL (8.5-10.1); Magnesium 2.2 MG/DL (1.8-2.4); Osmolality,Calculated 286.1 MOS/KG (273-304); Potassium 4.5 MMOL/L (3.5-5.1)
[2016-08-24 07:43] LABS: Albumin 2.9 G/DL (3.4-5.0); Osmolality,Calculated 284.3 MOS/KG (273-304); Phosphorous 3.2 MG/DL (2.5-4.9); Potassium 4.5 MMOL/L (3.5-5.1)
[2016-08-24 07:53] LABS: Hypochromasia Slight; Macrocytosis 1+; Polychromasia Slight
--- NOTE | 2016-08-24 09:59 | Discharge Summary ---
<Delgado Gordon - Last Filed: 08/24/16 09:43> Hospital Course - Hospital Course Hospital Course: This is a 61-year-old female who was admitted on 08/20/2016 as a transfer from [facility] for further evaluation of a swollen left lower extremity. Venous Doppler on admission show no evidence of DVT within the left lower extremity. She is admitted with cellulitis and elevated troponins. Patient was started on IV antibiotics (clindamycin 600 mg) and blood culture was obtained for the cellulitis. Cardiology was consulted as the patient was found to be in sinus bradycardia. She was started on a Holter monitor to evaluate AV block. Cardiology believes her elevated troponin to be related to her end- stage renal failure and hypertension without any evidence of ACS. Nephrology was consulted for management of hemodialysis. Patient continued IV antibiotics. Blood cultures show no growth at day 3. Hospital course was uncomplicated highlighted by management of acute cellulitis and chronic conditions. At this time, the patient has reached maximum benefit from hospitalization and is stable for discharge. She will be discharged to home with appropriate follow-up instructions for discharge orders and addendum from Dr. Sprague. She is to follow-up with her [facility] and hemodialysis as scheduled. - Time spent with patient Time with patient DS: Greater than 30 minutes Discharge Plan - Discharge Data Disposition: Disch To Home/Self Care - Discharge Medications New Acetaminophen Tab [Tylenol Tab] 650 mg PO Q4H PRN #0 tablet PRN Reason: Fever, Headache, Mild Pain Calcitriol [Rocaltrol] 0.25 mcg PO DAILY #30 capsule HYDROcodone/ACETAMIN 7.5-325 [Raymond 7.5-325] 1 tablet PO Q4H PRN #20 tablet PRN Reason: Pain Moderate (4-7) amLODIPine [Norvasc] 10 mg PO DAILY #30 tablet Epoetin Ash [Epogen] 8,000 unit IV .PER DIALYSIS PRN #0 vial PRN Reason: DIALYSIS Clindamycin HCl [Clindamycin Cap] 150 mg PO Q8HR #7 capsule Continue Minoxidil [Loniten] 2.5 mg PO DAILY Losartan [Cozaar] 50 mg PO DAILY Folic Acid Tab 1 mg PO DAILY tablet Propylene Glycol/Peg 400 [Systane Ultra] 1 drop BOTH EYES QID Gabapentin Cap/Tab [Neurontin Cap/Tab] 100 mg PO TID Bacitracin Oint 1 applic TOP BID Simvastatin 40 mg PO BEDTIME Polyethylene Glycol Powder [Miralax] 17 gm PO DAILY PRN PRN Reason: Constipation - Follow Up or Referral - Forms/Instructions Exam - Constitutional Vitals: Period Temp Pulse Resp BP Sys/Cordero Pulse Ox Last 24 Hr 97.7 F-98.4 F 48-63 18-20 131-185/59-85 92-100 Discharge Results Procedures and tests throughout hospitalization: Pending Orders 08/21/16 17:32 Blood Culture Routine 08/25/16 04:00 BMP w/ Mg [Basic Metabolic Panel w/Mg] IN AM 08/26/16 04:00 BMP w/ Mg [Basic Metabolic Panel w/Mg] IN AM Labs on day of discharge: Labs from last 24 hours 08/24/16 08/24/16 08/24/16 11:04 07:15 06:28 WBC RBC Hgb Hct MCV MCH MCHC RDW Plt Count MPV Neut % (Auto) Lymph % (Auto) [place] % (Auto) Eos % (Auto) Baso % (Auto) Neut # (Auto) Lymph # (Auto) [place] # (Auto) Eos # (Auto) Baso # (Auto) Immature Gran % Nucleated RBC % Immature Gran # Nucleated RBCs # Polychromasia Hypochromasia Macrocytosis Sodium 142 Potassium 4.5 Chloride 107 Carbon Dioxide 29 Anion Gap 10.5 BUN 13 Creatinine 4.00 H GFR Calculation 11 BUN/Creatinine Ratio 3.00 L Glucose 169 H POC Glucose 196 H 182 H Calculated Osmolality 286.1 Calcium 7.8 L Phosphorus Magnesium 2.2 Albumin 08/24/16 08/24/16 08/23/16 06:28 06:28 19:41 WBC 4.6 RBC 2.69 L Hgb 8.5 L Hct 26.4 L MCV 98.1 MCH 32 MCHC 32.2 RDW 14.9 Plt Count 51 L MPV 13.0 H Neut % (Auto) 65.9 Lymph % (Auto) 20.2 L [place] % (Auto) 10.6 Eos % (Auto) 2.0 Baso % (Auto) 0.4 Neut # (Auto) 3.0 Lymph # (Auto) 0.9 L [place] # (Auto) 0.5 Eos # (Auto) 0.1 Baso # (Auto) 0.0 Immature Gran % 0.9 Nucleated RBC % 0.0 Immature Gran # 0.04 Nucleated RBCs # 0.00 Polychromasia Slight Hypochromasia Slight Macrocytosis 1+ Sodium 141 Potassium 4.5 Chloride 106 Carbon Dioxide 30 Anion Gap 9.5 BUN 14 Creatinine 4.00 H GFR Calculation 11 BUN/Creatinine Ratio 3.00 L Glucose 157 H POC Glucose 175 H Calculated Osmolality 284.3 Calcium 8.0 L Phosphorus 3.2 Magnesium Albumin 2.9 L 08/23/16 16:02 WBC RBC Hgb Hct MCV MCH MCHC RDW Plt Count MPV Neut % (Auto) Lymph % (Auto) [place] % (Auto) Eos % (Auto) Baso % (Auto) Neut # (Auto) Lymph # (Auto) [place] # (Auto) Eos # (Auto) Baso # (Auto) Immature Gran % Nucleated RBC % Immature Gran # Nucleated RBCs # Polychromasia Hypochromasia Macrocytosis Sodium Potassium Chloride Carbon Dioxide Anion Gap BUN Creatinine GFR Calculation BUN/Creatinine Ratio Glucose POC Glucose 166 H Calculated Osmolality Calcium Phosphorus Magnesium Albumin Preliminary micro results at discharge 08/20/16 17:44 Blood Culture - Preliminary Blood No growth at 3 days 08/20/16 17:44 Blood Culture - Preliminary Blood No growth at 3 days 08/21/16 17:32 Blood Culture - Preliminary Blood No growth at 1 day 08/21/16 17:32 Blood Culture - Preliminary Blood No growth at 1 day DS: Provider Date of admission: 08/20/16 17:06 Primary care physician: Ronn Almeida MD Attending physician on admission: Norbert Barragan MD Consults: 08/20/16 18:03 Consult to Physician [CONS] Routine Comment: Consulting Provider: Sigifredo Carroll Consult to Specialist Group: Nephrology When should Consulting Provider be notified: In am Person Notified: RAJI Date Notified: 08/21/16 Time Notified: 09:28 Consult Notification Comment: 08/21/16 01:40 Consult to Physician [CONS] Routine Comment: develop 2nd degree block Consulting Provider: [facility] When should Consulting Provider be notified: In am Consult to Specialist Group: Cardiology When should Consulting Provider be notified: In am Person Notified: [email or web address] Date Notified: 08/21/16 Time Notified: 08:01 Discharging clinician: Delgado MURPHY Expected date of discharge: 08/24/16 <Analilia Galindo - Last Filed: 08/24/16 13:17> Hospital Course - Hospital Course Hospital Course: her TSH was normal, HbA1c level-5.3. Vitals are stable. - Time spent with patient Time with patient DS: Greater than 30 minutes (Time spent:40mins) Diagnosis - Discharge Diagnosis (1) End stage renal disease Status: Chronic (2) Hypertension Status: Chronic (3) Cellulitis Status: Acute (4) Diabetes mellitus Status: Chronic (5) Increase in troponins Status: Acute (6) Dyslipidemia Status: Chronic (7) Bradycardia Status: Acute Discharge Plan - Discharge Data Condition at Discharge: Stable Discharge Diet: heart healthy Activity: resume usual activities as tolerated - Forms/Instructions Additional Discharge Instructions: Follow up with PCP in 1week
[2016-08-24] MEDS: FOLIC ACID 1 MG TABLET PO SCH (10:19)
[2016-08-24] MEDS: CALCITRIOL 0.25 MCG CAPSULE PO SCH (10:19)
[2016-08-24] MEDS: LOSARTAN 50 MG TABLET PO SCH (10:19)
[2016-08-24] MEDS: MINOXIDIL 2.5 MG TABLET PO SCH (10:19)
[2016-08-24] MEDS: INSULIN LISPRO 100 UNIT/ML SUBCUT SCH ×2 (10:19→11:52)
[2016-08-24] MEDS: PANTOPRAZOLE 40 MG TABLET PO SCH (10:20)
[2016-08-24] MEDS: POLYVINYL ALCOHOL 1.4% OPH SOLN 15 ML BOTTLE BOTH EYES SCH ×2 (10:22→13:01)
[2016-08-24] MEDS: BACITRACIN OINT 28.35 GM TUBE TOP SCH (10:22)
[2016-08-24 11:23] VITALS: BP 185/85
== END 2016-08-24 14:07 | disposition home or self-care (01) | DRG 602 ==
LOC: EDBD → EDUNIT# → N.ED 16:21 → N.EDINP 17:06 → SUATTDRO 17:06 → N.5E 17:48
PROVIDERS: ADMIT Internal Medicine; ATTEND Internal Medicine

== ENCOUNTER 2017-03-15 14:32 | Inpatient (IN) ==
[2017-03-15] MEDS ORDERED: diphenhydrAMINE CAP 25 MG CAPSULE PO PRN (18:33)
[2017-03-15] MEDS ORDERED: guaiFENesin/DM ER 600-30 MG TABLET PO PRN (18:33)
[2017-03-15] MEDS ORDERED: DOCUSATE SODIUM 100 MG CAPSULE PO PRN (18:33)
[2017-03-15] MEDS ORDERED: GLUCAGON 1 MG VIAL IM PRN (18:33)
[2017-03-15] MEDS ORDERED: ONDANSETRON 4 MG/2 ML VIAL IV PRN (18:33)
[2017-03-15] MEDS ORDERED: ACETAMINOPHEN 325 MG TABLET PO PRN ×2 (18:33)
[2017-03-15] MEDS ORDERED: MORPHINE 2 MG/1 ML SYRINGE IV PRN (18:33)
[2017-03-15] MEDS ORDERED: DEXTROSE 50% 25 GM/50 ML VIAL IV PRN (18:33)
[2017-03-15] MEDS ORDERED: ENOXAPARIN 30 MG/0.3 ML SYRINGE SUBCUT SCH (19:00)
[2017-03-15] MEDS ORDERED: POLYETHYLENE GLYCOL POWDER 17 GM PACK PO PRN (20:32)
[2017-03-15] MEDS: GABAPENTIN 100 MG CAPSULE PO SCH (21:29)
[2017-03-15] MEDS: AMOXICILLIN 500 MG CAPSULE PO SCH (21:29)
[2017-03-15] MEDS: SIMVASTATIN 40 MG TABLET PO SCH (21:29)
[2017-03-15] MEDS: INSULIN LISPRO 100 UNIT/ML SUBCUT SCH (21:30)
[2017-03-15] MEDS: BACITRACIN OINT 28.35 GM TUBE TOP SCH (21:31)
[2017-03-16 07:24] LABS: Magnesium 2.3 MG/DL (1.8-2.4); Osmolality,Calculated 289.3 MOS/KG (273-304)
[2017-03-16] MEDS: FOLIC ACID 1 MG TABLET PO SCH (10:08)
[2017-03-16] MEDS: AMOXICILLIN 500 MG CAPSULE PO SCH ×3 (10:08→20:58)
[2017-03-16] MEDS: MINOXIDIL 2.5 MG TABLET PO SCH (10:08)
[2017-03-16] MEDS: CALCITRIOL 0.25 MCG CAPSULE PO SCH (10:08)
[2017-03-16] MEDS: GABAPENTIN 100 MG CAPSULE PO SCH ×3 (10:08→20:58)
[2017-03-16] MEDS: PANTOPRAZOLE 40 MG TABLET PO SCH (10:08)
[2017-03-16] MEDS: BACITRACIN OINT 28.35 GM TUBE TOP SCH ×2 (10:09→20:58)
[2017-03-16] MEDS: INSULIN LISPRO 100 UNIT/ML SUBCUT SCH ×2 (10:09→17:13)
[2017-03-16] MEDS: amLODIPine 10 MG TABLET PO SCH (10:34)
[2017-03-16] MEDS: SIMVASTATIN 40 MG TABLET PO SCH (20:58)
[2017-03-17] MEDS: INSULIN LISPRO 100 UNIT/ML SUBCUT SCH ×2 (07:58→16:42)
[2017-03-17] MEDS: BACITRACIN OINT 28.35 GM TUBE TOP SCH ×2 (08:57→20:38)
[2017-03-17] MEDS: FOLIC ACID 1 MG TABLET PO SCH (08:57)
[2017-03-17] MEDS: AMOXICILLIN 500 MG CAPSULE PO SCH ×3 (08:57→20:38)
[2017-03-17] MEDS: PANTOPRAZOLE 40 MG TABLET PO SCH (08:58)
[2017-03-17] MEDS: MINOXIDIL 2.5 MG TABLET PO SCH (08:58)
[2017-03-17] MEDS: CALCITRIOL 0.25 MCG CAPSULE PO SCH (08:58)
[2017-03-17] MEDS: GABAPENTIN 100 MG CAPSULE PO SCH ×3 (08:58→20:38)
[2017-03-17] MEDS: amLODIPine 10 MG TABLET PO SCH (08:58)
[2017-03-17] MEDS ORDERED: guaiFENesin 200 MG/10 ML UDCUP PO PRN (15:30)
[2017-03-17] MEDS: POLYVINYL ALCOHOL 1.4% OPH SOLN 15 ML BOTTLE BOTH EYES SCH ×2 (16:41→20:40)
[2017-03-17] MEDS: CARVEDILOL 3.125 MG TABLET PO SCH (20:38)
[2017-03-17] MEDS: SIMVASTATIN 40 MG TABLET PO SCH (20:38)
[2017-03-18] MEDS: INSULIN LISPRO 100 UNIT/ML SUBCUT SCH (08:04)
[2017-03-18] MEDS: MINOXIDIL 2.5 MG TABLET PO SCH (08:39)
[2017-03-18] MEDS: CALCITRIOL 0.25 MCG CAPSULE PO SCH (08:39)
[2017-03-18] MEDS: AMOXICILLIN 500 MG CAPSULE PO SCH (08:39)
[2017-03-18] MEDS: amLODIPine 10 MG TABLET PO SCH (08:39)
[2017-03-18] MEDS: FOLIC ACID 1 MG TABLET PO SCH (08:40)
[2017-03-18] MEDS: PANTOPRAZOLE 40 MG TABLET PO SCH (08:40)
[2017-03-18] MEDS: CARVEDILOL 3.125 MG TABLET PO SCH (08:40)
[2017-03-18] MEDS: BACITRACIN OINT 28.35 GM TUBE TOP SCH (08:40)
[2017-03-18] MEDS: POLYVINYL ALCOHOL 1.4% OPH SOLN 15 ML BOTTLE BOTH EYES SCH ×2 (08:40→12:48)
[2017-03-18] MEDS: GABAPENTIN 100 MG CAPSULE PO SCH (08:40)
[2017-03-18 12:10] VITALS: BP 117/44
== END 2017-03-18 14:04 | disposition home or self-care (01) | DRG 640 ==
LOC: SUATTDRO 17:53 → N.5E 17:53
PROVIDERS: ADMIT Internal Medicine Geriatric Medicine; ATTEND Internal Medicine

== ENCOUNTER 2017-04-13 16:13 | Inpatient (IN) ==
[2017-04-13] MEDS ORDERED: ALBUTEROL 2.5 MG/3 ML NEB RESP TX PRN (16:14)
[2017-04-13] MEDS ORDERED: AZITHROMYCIN INJ 500 MG in SODIUM CHLORIDE 0.9% 250 ML IV ONE ×2 (18:30→21:00)
[2017-04-13] MEDS ORDERED: ALBUTEROL/IPRATROPIUM 3 ML NEB RESP TX STA (19:36)
[2017-04-13] MEDS ORDERED: PHENOL 1.4% THROAT SPRAY 177 ML BOTTLE PO PRN (19:37)
[2017-04-13] MEDS: ALBUTEROL/IPRATROPIUM 3 ML NEB RESP TX SCH (20:15)
[2017-04-13] MEDS ORDERED: LEVOFLOXACIN INJ 750 MG in PREMIX 1 EACH IV ONE (21:00)
[2017-04-13] MEDS ORDERED: GLUCAGON 1 MG VIAL IM PRN (21:12)
[2017-04-13] MEDS ORDERED: DEXTROSE 50% 25 GM/50 ML VIAL IV PRN (21:12)
[2017-04-13] MEDS: INSULIN GLARGINE 100 UNIT/ML SUBCUT SCH (21:18)
[2017-04-13] MEDS: INSULIN REGULAR 100 UNIT/ML SUBCUT SCH (21:18)
[2017-04-13] MEDS ORDERED: VANCOMYCIN INJ 1,500 MG in SODIUM CHLORIDE 0.9% 250 ML IV ONE (21:30)
[2017-04-13] MEDS: SIMVASTATIN 40 MG TABLET PO SCH (21:45)
[2017-04-13] MEDS: guaiFENesin 200 MG/10 ML UDCUP PO PRN (21:45)
[2017-04-13] MEDS: GABAPENTIN 100 MG CAPSULE PO SCH (21:45)
[2017-04-13] MEDS: DOCUSATE SODIUM 100 MG CAPSULE PO SCH (21:47)
[2017-04-13] MEDS ORDERED: VANCOMYCIN INJ 500 MG in SODIUM CHLORIDE 0.9% 100 ML IV PRN (21:49)
[2017-04-13] MEDS ORDERED: VANCOMYCIN INJ 1,500 MG in SODIUM CHLORIDE 0.9% 500 ML IV ONE (23:30)
[2017-04-14] MEDS: ALBUTEROL/IPRATROPIUM 3 ML NEB RESP TX SCH ×4 (00:38→20:20)
[2017-04-14 03:42] LABS: Basophils % 0.2 % (0.0-0.8); Eosinophils % 0.1 % (0.00-10.9); Hematocrit 26.1 VOL% (35.7-47.0); Hemoglobin 8.2 GM/DL (12.0-16.0); Immature Granulocytes % 0.7 %; Immature Granulocytes Absolute 0.07 #; Lymphocytes # 0.7 10*3/uL (1.4-4.0); Lymphocytes % 6.6 % (21.3-54.2); Mean Corpuscular HGB Conc 31.4 GM/DL (32-36); Mean Corpuscular Hemoglobin 31 PG (27-34); Mean Corpuscular Volume 99.2 FL (87-102); Mean Platelet Volume 11.7 FL (9.6-12.0); Monocytes # 0.8 10*3/uL (0.11-0.8); Monocytes % 7.3 % (1.7-12.7); Neutrophils % 85.1 % (38.7-73.9); Red Blood Count 2.63 MC/CUMM (3.8-5.5); Red Cell Distribution Width 15.1 % (9.3-17.3); White Blood Count 10.5 T/CUMM (4-12)
[2017-04-14 03:51] LABS: Platelet Count 34 T/CUMM (130-400)
[2017-04-14] MEDS: guaiFENesin 200 MG/10 ML UDCUP PO PRN ×2 (04:20→09:30)
[2017-04-14 04:25] LABS: Albumin 2.4 G/DL (3.4-5.0); Bilirubin,Total 0.6 MG/DL (0.2-1.0); Calcium 8.1 MG/DL (8.5-10.1); Osmolality,Calculated 303.5 MOS/KG (273-304); Potassium 4.4 MMOL/L (3.5-5.1); Total Protein 5.8 G/DL (6.4-8.3)
[2017-04-14 04:51] LABS: Hypochromasia 1+; Microcytosis Slight; Ovalocytes Slight; Platelet Estimate Decreased
[2017-04-14] MEDS: INSULIN REGULAR 100 UNIT/ML SUBCUT SCH ×4 (08:29→22:39)
[2017-04-14] MEDS: DOCUSATE SODIUM 100 MG CAPSULE PO SCH ×2 (09:30→21:18)
[2017-04-14] MEDS: MULTIVITAMIN (CENTRUM) TABLET PO SCH (09:30)
[2017-04-14] MEDS: GABAPENTIN 100 MG CAPSULE PO SCH ×3 (09:30→21:18)
[2017-04-14] MEDS: CALCIUM ACETATE 667 MG CAPSULE PO SCH ×3 (09:30→16:24)
[2017-04-14] MEDS: FOLIC ACID 1 MG TABLET PO SCH (09:30)
[2017-04-14] MEDS: ASPIRIN EC 81 MG TABLET PO SCH (09:31)
[2017-04-14 11:06] LABS: Hepatitis A Ab IgM Quant 0.27 Index; Hepatitis A Ab IgM Result Negative (Negative); Hepatitis B Core IgM Quant 0.06 Index; Hepatitis B Core IgM Result Negative (Negative); Hepatitis B Surface Ag Quant < 0.10 Index; Hepatitis B Surface Ag Result Negative (Negative); Hepatitis C Virus Ab Quant 0.15 Index; Hepatitis C Virus Ab Result Negative (Negative)
[2017-04-14] MEDS ORDERED: VANCOMYCIN INJ 500 MG in SODIUM CHLORIDE 0.9% 100 ML IV ONE (20:00)
[2017-04-14] MEDS: LEVOFLOXACIN INJ 750 MG in PREMIX 1 EACH IV SCH (21:18)
[2017-04-14] MEDS: SIMVASTATIN 40 MG TABLET PO SCH (21:18)
[2017-04-14] MEDS: INSULIN GLARGINE 100 UNIT/ML SUBCUT SCH (21:32)
[2017-04-15] MEDS: ACETAMINOPHEN 325 MG TABLET PO PRN (01:12)
[2017-04-15] MEDS: ALBUTEROL/IPRATROPIUM 3 ML NEB RESP TX SCH ×4 (01:33→20:10)
[2017-04-15] MEDS: MULTIVITAMIN (CENTRUM) TABLET PO SCH (08:27)
[2017-04-15] MEDS: INSULIN REGULAR 100 UNIT/ML SUBCUT SCH ×4 (08:27→21:03)
[2017-04-15] MEDS: CALCIUM ACETATE 667 MG CAPSULE PO SCH ×3 (08:27→16:17)
[2017-04-15] MEDS: ASPIRIN EC 81 MG TABLET PO SCH (08:28)
[2017-04-15] MEDS: DOCUSATE SODIUM 100 MG CAPSULE PO SCH ×2 (08:28→21:03)
[2017-04-15] MEDS: FOLIC ACID 1 MG TABLET PO SCH (08:28)
[2017-04-15] MEDS: GABAPENTIN 100 MG CAPSULE PO SCH ×3 (08:28→21:03)
[2017-04-15] MEDS: INSULIN GLARGINE 100 UNIT/ML SUBCUT SCH (21:03)
[2017-04-15] MEDS: SIMVASTATIN 40 MG TABLET PO SCH (21:03)
[2017-04-16] MEDS: ALBUTEROL/IPRATROPIUM 3 ML NEB RESP TX SCH ×5 (01:02→19:31)
[2017-04-16 05:59] LABS: Basophils % 0.2 % (0.0-0.8); Eosinophils # 0.1 10*3/uL (0.0-0.87); Eosinophils % 0.5 % (0.00-10.9); Hematocrit 30.5 VOL% (35.7-47.0); Hemoglobin 9.5 GM/DL (12.0-16.0); Immature Granulocytes % 1.4 %; Immature Granulocytes Absolute 0.18 #; Lymphocytes % 8.2 % (21.3-54.2); Mean Corpuscular HGB Conc 31.1 GM/DL (32-36); Mean Corpuscular Hemoglobin 31 PG (27-34); Mean Corpuscular Volume 98.7 FL (87-102); Mean Platelet Volume 12.6 FL (9.6-12.0); Monocytes # 1.1 10*3/uL (0.11-0.8); Monocytes % 9.2 % (1.7-12.7); Neutrophils % 80.5 % (38.7-73.9); Red Blood Count 3.09 MC/CUMM (3.8-5.5); Red Cell Distribution Width 14.5 % (9.3-17.3); White Blood Count 12.5 T/CUMM (4-12)
[2017-04-16 06:18] LABS: Platelet Count 36 T/CUMM (130-400)
[2017-04-16 06:22] LABS: Macrocytosis 1+
[2017-04-16 06:23] LABS: Hypochromasia 1+; Platelet Estimate Decreased
[2017-04-16 06:27] LABS: Calcium 8.9 MG/DL (8.5-10.1); Osmolality,Calculated 283.7 MOS/KG (273-304); Potassium 4.7 MMOL/L (3.5-5.1)
[2017-04-16] MEDS: INSULIN REGULAR 100 UNIT/ML SUBCUT SCH ×4 (08:01→20:52)
[2017-04-16] MEDS: CALCIUM ACETATE 667 MG CAPSULE PO SCH ×3 (10:23→16:46)
[2017-04-16] MEDS: GABAPENTIN 100 MG CAPSULE PO SCH ×3 (10:23→21:19)
[2017-04-16] MEDS: ASPIRIN EC 81 MG TABLET PO SCH (14:03)
[2017-04-16] MEDS: FOLIC ACID 1 MG TABLET PO SCH (14:03)
[2017-04-16] MEDS: MULTIVITAMIN (CENTRUM) TABLET PO SCH (14:03)
[2017-04-16] MEDS: DOCUSATE SODIUM 100 MG CAPSULE PO SCH ×2 (14:03→21:19)
[2017-04-16] MEDS: guaiFENesin 200 MG/10 ML UDCUP PO PRN ×2 (14:10→21:18)
[2017-04-16] MEDS ORDERED: VANCOMYCIN INJ 500 MG in SODIUM CHLORIDE 0.9% 100 ML IV ONE (15:00)
[2017-04-16] MEDS: LEVOFLOXACIN INJ 750 MG in PREMIX 1 EACH IV SCH (21:19)
[2017-04-16] MEDS: INSULIN GLARGINE 100 UNIT/ML SUBCUT SCH (21:19)
[2017-04-16] MEDS: SIMVASTATIN 40 MG TABLET PO SCH (21:19)
[2017-04-17] MEDS: ALBUTEROL/IPRATROPIUM 3 ML NEB RESP TX SCH ×4 (00:52→21:19)
[2017-04-17 03:37] LABS: Basophils % 0.3 % (0.0-0.8); Eosinophils # 0.1 10*3/uL (0.0-0.87); Eosinophils % 0.9 % (0.00-10.9); Hematocrit 30.8 VOL% (35.7-47.0); Immature Granulocytes % 1.5 %; Immature Granulocytes Absolute 0.15 #; Lymphocytes # 1.1 10*3/uL (1.4-4.0); Lymphocytes % 10.4 % (21.3-54.2); Mean Corpuscular HGB Conc 32.5 GM/DL (32-36); Mean Corpuscular Hemoglobin 31 PG (27-34); Mean Platelet Volume 11.7 FL (9.6-12.0); Monocytes # 0.9 10*3/uL (0.11-0.8); Monocytes % 8.4 % (1.7-12.7); Neutrophils # 8.1 10*3/uL (1.4-7.4); Neutrophils % 78.5 % (38.7-73.9); Red Blood Count 3.21 MC/CUMM (3.8-5.5); Red Cell Distribution Width 14.4 % (9.3-17.3); White Blood Count 10.3 T/CUMM (4-12)
[2017-04-17 03:46] LABS: Platelet Count 38 T/CUMM (130-400)
[2017-04-17 04:20] LABS: Calcium 8.6 MG/DL (8.5-10.1); Osmolality,Calculated 280.4 MOS/KG (273-304); Potassium 4.2 MMOL/L (3.5-5.1)
[2017-04-17] MEDS: INSULIN REGULAR 100 UNIT/ML SUBCUT SCH ×4 (08:41→21:29)
[2017-04-17] MEDS: CALCIUM ACETATE 667 MG CAPSULE PO SCH ×3 (08:41→17:14)
[2017-04-17] MEDS: ASPIRIN EC 81 MG TABLET PO SCH (08:42)
[2017-04-17] MEDS: DOCUSATE SODIUM 100 MG CAPSULE PO SCH ×2 (08:42→21:29)
[2017-04-17] MEDS: MULTIVITAMIN (CENTRUM) TABLET PO SCH (08:42)
[2017-04-17] MEDS: GABAPENTIN 100 MG CAPSULE PO SCH ×3 (08:42→21:29)
[2017-04-17] MEDS: FOLIC ACID 1 MG TABLET PO SCH (08:42)
[2017-04-17] MEDS: SIMVASTATIN 40 MG TABLET PO SCH (21:29)
[2017-04-17] MEDS: INSULIN GLARGINE 100 UNIT/ML SUBCUT SCH (21:29)
[2017-04-18] MEDS: ALBUTEROL/IPRATROPIUM 3 ML NEB RESP TX SCH ×4 (01:32→20:07)
[2017-04-18 05:39] LABS: Basophils % 0.4 % (0.0-0.8); Eosinophils # 0.3 10*3/uL (0.0-0.87); Eosinophils % 3.4 % (0.00-10.9); Hematocrit 29.4 VOL% (35.7-47.0); Hemoglobin 9.2 GM/DL (12.0-16.0); Immature Granulocytes % 1.7 %; Immature Granulocytes Absolute 0.16 #; Lymphocytes # 1.1 10*3/uL (1.4-4.0); Lymphocytes % 11.8 % (21.3-54.2); Mean Corpuscular HGB Conc 31.3 GM/DL (32-36); Mean Corpuscular Hemoglobin 31 PG (27-34); Mean Corpuscular Volume 97.4 FL (87-102); Mean Platelet Volume 11.5 FL (9.6-12.0); Monocytes # 0.8 10*3/uL (0.11-0.8); Monocytes % 8.1 % (1.7-12.7); Neutrophils # 7.1 10*3/uL (1.4-7.4); Neutrophils % 74.6 % (38.7-73.9); Red Blood Count 3.02 MC/CUMM (3.8-5.5); Red Cell Distribution Width 14.4 % (9.3-17.3); White Blood Count 9.5 T/CUMM (4-12)
[2017-04-18 05:52] LABS: Platelet Count 38 T/CUMM (130-400)
[2017-04-18 06:05] LABS: Platelet Estimate Decreased
[2017-04-18 06:24] LABS: Calcium 8.9 MG/DL (8.5-10.1); Osmolality,Calculated 287.7 MOS/KG (273-304); Potassium 5.2 MMOL/L (3.5-5.1)
[2017-04-18] MEDS: INSULIN REGULAR 100 UNIT/ML SUBCUT SCH ×4 (08:23→21:59)
[2017-04-18] MEDS: DOCUSATE SODIUM 100 MG CAPSULE PO SCH ×2 (08:25→21:58)
[2017-04-18] MEDS: CALCIUM ACETATE 667 MG CAPSULE PO SCH ×3 (08:25→16:19)
[2017-04-18] MEDS: MULTIVITAMIN (CENTRUM) TABLET PO SCH (08:25)
[2017-04-18] MEDS: ASPIRIN EC 81 MG TABLET PO SCH (08:25)
[2017-04-18] MEDS: GABAPENTIN 100 MG CAPSULE PO SCH ×3 (08:25→22:00)
[2017-04-18] MEDS: FOLIC ACID 1 MG TABLET PO SCH (08:25)
[2017-04-18] MEDS: ACETAMINOPHEN 325 MG TABLET PO PRN (14:21)
[2017-04-18] MEDS ORDERED: VANCOMYCIN INJ 500 MG in SODIUM CHLORIDE 0.9% 100 ML IV ONE (15:00)
[2017-04-18] MEDS: SIMVASTATIN 40 MG TABLET PO SCH (21:58)
[2017-04-18] MEDS: LEVOFLOXACIN INJ 750 MG in PREMIX 1 EACH IV SCH (21:59)
[2017-04-18] MEDS: INSULIN GLARGINE 100 UNIT/ML SUBCUT SCH (21:59)
[2017-04-19] MEDS: ALBUTEROL/IPRATROPIUM 3 ML NEB RESP TX SCH ×3 (02:02→14:09)
[2017-04-19 08:04] VITALS: BP 180/60
[2017-04-19] MEDS: INSULIN REGULAR 100 UNIT/ML SUBCUT SCH ×2 (08:25→12:33)
[2017-04-19] MEDS: MULTIVITAMIN (CENTRUM) TABLET PO SCH (08:28)
[2017-04-19] MEDS: ASPIRIN EC 81 MG TABLET PO SCH (08:28)
[2017-04-19] MEDS: DOCUSATE SODIUM 100 MG CAPSULE PO SCH (08:28)
[2017-04-19] MEDS: FOLIC ACID 1 MG TABLET PO SCH (08:28)
[2017-04-19] MEDS: GABAPENTIN 100 MG CAPSULE PO SCH (08:28)
[2017-04-19] MEDS: CALCIUM ACETATE 667 MG CAPSULE PO SCH ×2 (08:28→12:49)
== END 2017-04-19 15:06 | disposition home or self-care (01) | DRG 193 ==
LOC: SUATTDRO 18:10 → N.ICU 18:10 → N.TELES 04-14 14:29
PROVIDERS: ADMIT Internal Medicine Infectious Disease; ATTEND Family Medicine

== ENCOUNTER 2018-04-22 07:06 | Observation (INO) ==
[~2018-04-22 07:06] MED LIST: VANCOMYCIN INJ 1,000 MG in SODIUM CHLORIDE 0.9% 250 ML IV ONE
[2018-04-22 08:33] LABS: Hematocrit 30.8 VOL% (35.7-47.0); Hemoglobin 9.4 GM/DL (12.0-16.0)
[2018-04-22] MEDS ORDERED: VANCOMYCIN 1,000 MG VIAL ONE (09:17)
[2018-04-22] MEDS: SODIUM CHLORIDE 0.9% 250 ML IV SCH (09:21)
[2018-04-22] MEDS ORDERED: DEXTROSE 50% 25 GM/50 ML VIAL IV ONE ×5 (11:14→21:50)
[2018-04-22] MEDS ORDERED: DEXTROSE 50% 25 GM/50 ML VIAL IV STA ×2 (11:19→12:02)
[2018-04-22] MEDS ORDERED: TISSUE ADHESIVE 1 EACH APPLICATOR TOP ONE (11:33)
[2018-04-22] MEDS ORDERED: LIDOCAINE 1%/EPI INJ 20 ML VIAL ONE (11:33)
[2018-04-22] MEDS ORDERED: HEPARIN 5,000 UNIT/1 ML VIAL ONE (11:33)
[2018-04-22] MEDS ORDERED: THROMBIN TOPICAL (RECOMBINANT) 5,000 UNIT VIAL TOP ONE (11:33)
[2018-04-22] MEDS ORDERED: PROPOFOL 200 MG/20 ML VIAL IV ONE (13:48)
[2018-04-22] MEDS ORDERED: MIDAZOLAM 2 MG/2 ML VIAL ONE (13:49)
[2018-04-22] MEDS ORDERED: GLYCOPYRROLATE 0.4 MG/2 ML VIAL ONE (13:49)
[2018-04-22] MEDS ORDERED: fentaNYL 100 MCG/2 ML VIAL ONE (13:49)
[2018-04-22] MEDS ORDERED: DEXTROSE 5% 250 ML IV SCH (15:30)
[2018-04-22] MEDS ORDERED: PROMETHAZINE 25 MG/1 ML VIAL IM PRN (15:31)
[2018-04-22] MEDS ORDERED: ACETAMINOPHEN 325 MG TABLET PO PRN (15:31)
[2018-04-22] MEDS ORDERED: ONDANSETRON 4 MG/2 ML VIAL IV PRN (15:31)
[2018-04-22] MEDS ORDERED: DEXTROSE 10% 1,000 ML IV SCH (16:00)
[2018-04-22] MEDS ORDERED: DEXTROSE 5% 1,000 ML IV SCH (16:30)
[2018-04-22 17:19] LABS: Basophils % 0.2 % (0.0-0.8); Eosinophils % 0.3 % (0.00-10.9); Hematocrit 33.1 VOL% (35.7-47.0); Hemoglobin 10.1 GM/DL (12.0-16.0); Immature Granulocytes % 0.6 %; Immature Granulocytes Absolute 0.04 #; Lymphocytes # 1.1 10*3/uL (1.4-4.0); Lymphocytes % 17.4 % (21.3-54.2); Mean Corpuscular HGB Conc 30.5 GM/DL (32-36); Mean Corpuscular Hemoglobin 32 PG (27-34); Mean Corpuscular Volume 103.1 FL (87-102); Mean Platelet Volume 12.5 FL (9.6-12.0); Monocytes # 0.4 10*3/uL (0.11-0.8); Monocytes % 6.1 % (1.7-12.7); NRBC # 0.02 10*3/uL; Neutrophils # 4.9 10*3/uL (1.4-7.4); Neutrophils % 75.4 % (38.7-73.9); Platelet Count 53 T/CUMM (130-400); Red Blood Count 3.21 MC/CUMM (3.8-5.5); Red Cell Distribution Width 18.6 % (9.3-17.3); White Blood Count 6.5 T/CUMM (4-12)
[2018-04-22 17:49] LABS: Platelet Estimate Decreased
[2018-04-22 17:50] LABS: Anisocytosis 1+; Hypochromasia 1+
[2018-04-22 17:54] LABS: Albumin 2.7 G/DL (3.4-5.0); Bilirubin,Total 0.7 MG/DL (0.2-1.0); Calcium 7.7 MG/DL (8.5-10.1); Osmolality,Calculated 301.3 MOS/KG (273-304); Potassium 3.6 MMOL/L (3.5-5.1); Risk Ratio 1.22; Thyroid Stimulating Hormone 0.538 uIU/ml (0.358-3.74); VLDL CHOLESTEROL 6.2 MG/DL
[2018-04-22] MEDS: guaiFENesin/CODEINE 5 ML LIQUID PO SCH (18:44)
[2018-04-22] MEDS: CALCIUM ACETATE 667 MG CAPSULE PO SCH (18:44)
[2018-04-22] MEDS ORDERED: SIMVASTATIN 40 MG TABLET PO SCH (21:00)
[2018-04-23] MEDS ORDERED: DEXTROSE 50% 25 GM/50 ML VIAL IV PRN (00:43)
[2018-04-23] MEDS: guaiFENesin/CODEINE 5 ML LIQUID PO SCH ×3 (00:55→16:21)
[2018-04-23 08:14] VITALS: BP 141/54
[2018-04-23] MEDS ORDERED: PANTOPRAZOLE 40 MG TABLET PO SCH (09:00)
[2018-04-23] MEDS ORDERED: MINOXIDIL 2.5 MG TABLET PO SCH (09:00)
[2018-04-23] MEDS ORDERED: amLODIPine 10 MG TABLET PO SCH (09:00)
[2018-04-23] MEDS ORDERED: MULTIVITAMIN (CENTRUM) TABLET PO SCH (09:00)
[2018-04-23] MEDS ORDERED: FOLIC ACID 1 MG TABLET PO SCH (09:00)
[2018-04-23] MEDS: CALCIUM ACETATE 667 MG CAPSULE PO SCH ×2 (09:03→16:21)
[2018-04-23] MEDS ORDERED: HEPARIN LOCK FLUSH 500 UNIT/5 ML SYRINGE IV ONE (10:35)
[2018-04-23] MEDS ORDERED: HEPARIN 10,000 UNIT/10 ML VIAL IV SCH (12:00)
[2018-04-23] MEDS: SODIUM CHLORIDE 0.9% 250 ML IV SCH (16:22)
== END 2018-04-23 15:55 | disposition home or self-care (01) ==
LOC: SUATTDRO → N.SDSINP 07:06 → N.OR 07:06 → N.SDSINP 07:14 → SUATTDRO 15:31 → N.2E 16:09
PROVIDERS: ADMIT Surgery; ATTEND Internal Medicine Cardiovascular Disease

== ENCOUNTER 2018-06-18 14:05 | Inpatient (IN) ==
[2018-06-18] MEDS ORDERED: ACETAMINOPHEN 325 MG TABLET PO PRN (14:21)
[2018-06-18] MEDS ORDERED: ONDANSETRON 4 MG/2 ML VIAL IV PRN (14:21)
[2018-06-18] MEDS ORDERED: DEXTROSE 50% 25 GM/50 ML SYRINGE IV PRN (14:21)
[2018-06-18] MEDS ORDERED: GLUCAGON 1 MG VIAL IM PRN (14:21)
[2018-06-18] MEDS ORDERED: ALBUTEROL/IPRATROPIUM 3 ML NEB RESP TX PRN (14:21)
[2018-06-18] MEDS ORDERED: BISACODYL 5 MG TABLET PO PRN (14:21)
[2018-06-18] MEDS ORDERED: MORPHINE 4 MG/1 ML VIAL IV PRN ×2 (14:21)
[2018-06-18 15:56] LABS: Basophils % 0.7 % (0.0-0.8); Eosinophils # 0.1 10*3/uL (0.0-0.87); Eosinophils % 1.4 % (0.00-10.9); Hemoglobin 9.7 GM/DL (12.0-16.0); Immature Granulocytes % 0.5 %; Immature Granulocytes Absolute 0.02 #; Lymphocytes # 0.7 10*3/uL (1.4-4.0); Lymphocytes % 16.9 % (21.3-54.2); Mean Corpuscular HGB Conc 30.3 GM/DL (32-36); Mean Corpuscular Hemoglobin 30 PG (27-34); Mean Corpuscular Volume 100.3 FL (87-102); Monocytes # 0.3 10*3/uL (0.11-0.8); Monocytes % 8.2 % (1.7-12.7); Neutrophils % 72.3 % (38.7-73.9); Red Blood Count 3.19 MC/CUMM (3.8-5.5); Red Cell Distribution Width 16.7 % (9.3-17.3); White Blood Count 4.2 T/CUMM (4-12)
[2018-06-18 15:58] LABS: Platelet Count 39 T/CUMM (130-400)
[2018-06-18 16:02] LABS: PT Patient Result 11.1 SECS; Partial Thromboplastin Time 28.9 SECS (0-40)
[2018-06-18 16:14] LABS: Hypochromasia 1+; Microcytosis 1+
[2018-06-18 16:15] LABS: Platelet Estimate Decreased
[2018-06-18] MEDS: INSULIN LISPRO 100 UNIT/ML SUBCUT SCH (16:23)
[2018-06-18 16:29] LABS: Calcium 8.3 MG/DL (8.5-10.1); Osmolality,Calculated 278.7 MOS/KG (273-304); Potassium 3.6 MMOL/L (3.5-5.1)
[2018-06-18] MEDS ORDERED: SODIUM CHLORIDE 0.9% 1,000 ML IV PRN (16:45)
[2018-06-19] MEDS ORDERED: VANCOMYCIN INJ 1,000 MG in SODIUM CHLORIDE 0.9% 250 ML IV ONE (06:00)
[2018-06-19] MEDS: INSULIN LISPRO 100 UNIT/ML SUBCUT SCH ×3 (08:35→18:26)
[2018-06-19] MEDS: PANTOPRAZOLE 40 MG TABLET PO SCH (09:17)
[2018-06-19] MEDS ORDERED: DEXTROSE 50% 25 GM/50 ML VIAL IV ONE (10:04)
[2018-06-19] MEDS ORDERED: DEXTROSE 50% 25 GM/50 ML SYRINGE IV ONE (10:07)
[2018-06-19] MEDS ORDERED: LIDOCAINE 1%/EPI INJ 20 ML VIAL ONE (10:49)
[2018-06-19] MEDS ORDERED: MICROFIBRILLAR COLLAGEN POWDER 1 GM CAN TOP ONE (11:19)
[2018-06-19] MEDS ORDERED: GLYCOPYRROLATE 0.4 MG/2 ML VIAL ONE (11:40)
[2018-06-19] MEDS ORDERED: MIDAZOLAM 2 MG/2 ML VIAL ONE (11:45)
[2018-06-19] MEDS ORDERED: ONDANSETRON 4 MG/2 ML VIAL ONE (11:45)
[2018-06-19] MEDS ORDERED: PROPOFOL 200 MG/20 ML VIAL IV ONE (11:45)
[2018-06-19] MEDS ORDERED: SODIUM CHLORIDE 0.9% 250 ML IV ONE (11:45)
[2018-06-19] MEDS ORDERED: HEPARIN 10,000 UNIT/10 ML VIAL IV SCH (14:30)
[2018-06-20] MEDS: INSULIN LISPRO 100 UNIT/ML SUBCUT SCH ×3 (09:08→18:00)
[2018-06-20] MEDS: PANTOPRAZOLE 40 MG TABLET PO SCH (09:16)
[2018-06-21] MEDS: INSULIN LISPRO 100 UNIT/ML SUBCUT SCH ×2 (08:29→14:26)
[2018-06-21] MEDS: PANTOPRAZOLE 40 MG TABLET PO SCH (08:33)
[2018-06-21 13:05] VITALS: BP 166/43
== END 2018-06-21 13:35 | disposition home or self-care (01) | DRG 907 ==
LOC: N.3E → OBSVTOIN 14:21
PROVIDERS: ADMIT Surgery; ATTEND Surgery

== ENCOUNTER 2018-08-14 13:49 | Inpatient (IN) ==
[2018-08-14] MEDS ORDERED: diphenhydrAMINE CAP 25 MG CAPSULE PO PRN (14:38)
[2018-08-14] MEDS ORDERED: MAGNESIUM SULF RIDER 2 GM in PREMIX 1 EACH IV PRN (14:38)
[2018-08-14] MEDS ORDERED: DOCUSATE SODIUM 100 MG CAPSULE PO PRN (14:38)
[2018-08-14] MEDS ORDERED: ZALEPLON 5 MG CAPSULE PO PRN (14:38)
[2018-08-14] MEDS ORDERED: MAGNESIUM SULF RIDER 4 GM in PREMIX 1 EACH IV PRN (14:38)
[2018-08-14] MEDS ORDERED: ACETAMINOPHEN 325 MG TABLET PO PRN (14:38)
[2018-08-14] MEDS ORDERED: MORPHINE 4 MG/1 ML VIAL IV PRN (14:38)
[2018-08-14] MEDS ORDERED: ONDANSETRON 4 MG/2 ML VIAL IV PRN (14:38)
[2018-08-14] MEDS ORDERED: POTASSIUM CHLORIDE 20 MEQ TABLET PO PRN (14:40)
[2018-08-14 18:37] LABS: Basophils % 0.8 % (0.0-0.8); Eosinophils # 0.1 10*3/uL (0.0-0.87); Eosinophils % 1.7 % (0.00-10.9); Hematocrit 36.7 VOL% (35.7-47.0); Hemoglobin 11.1 GM/DL (12.0-16.0); Immature Granulocytes % 0.3 %; Immature Granulocytes Absolute 0.01 #; Lymphocytes # 0.5 10*3/uL (1.4-4.0); Lymphocytes % 14.7 % (21.3-54.2); Mean Corpuscular HGB Conc 30.2 GM/DL (32-36); Mean Corpuscular Volume 104.3 FL (87-102); Monocytes % 8.6 % (1.7-12.7); Neutrophils % 73.9 % (38.7-73.9); Red Blood Count 3.52 MC/CUMM (3.8-5.5); Red Cell Distribution Width 16.5 % (9.3-17.3); White Blood Count 3.6 T/CUMM (4-12)
[2018-08-14 18:43] LABS: Platelet Count 34 T/CUMM (130-400)
[2018-08-14 18:55] LABS: Albumin 3.4 G/DL (3.4-5.0); Bilirubin,Total 1.1 MG/DL (0.2-1.0); Calcium 8.3 MG/DL (8.5-10.1); Osmolality,Calculated 288.8 MOS/KG (273-304); Total Protein 6.2 G/DL (6.4-8.3)
[2018-08-14 18:57] LABS: Platelet Estimate Decreased
[2018-08-14] MEDS ORDERED: SODIUM CHLORIDE 0.9% 1,000 ML IV PRN (19:26)
[2018-08-14] MEDS ORDERED: DEXTROSE 50% 25 GM/50 ML SYRINGE IV PRN (19:42)
[2018-08-14] MEDS ORDERED: GLUCAGON 1 MG VIAL IM PRN (19:42)
[2018-08-14] MEDS: GABAPENTIN 100 MG CAPSULE PO SCH (21:00)
[2018-08-14] MEDS: SIMVASTATIN 40 MG TABLET PO SCH (21:00)
[2018-08-14] MEDS: INSULIN REGULAR 100 UNIT/ML SUBCUT SCH (22:03)
[2018-08-15 03:16] LABS: Eosinophils % 0.5 % (0.00-10.9); Hematocrit 39.3 VOL% (35.7-47.0); Hemoglobin 11.9 GM/DL (12.0-16.0); Immature Granulocytes % 0.2 %; Immature Granulocytes Absolute 0.01 #; Lymphocytes # 0.3 10*3/uL (1.4-4.0); Lymphocytes % 6.6 % (21.3-54.2); Mean Corpuscular HGB Conc 30.3 GM/DL (32-36); Mean Corpuscular Volume 102.6 FL (87-102); Monocytes % 0.7 % (1.7-12.7); Red Blood Count 3.83 MC/CUMM (3.8-5.5); Red Cell Distribution Width 16.4 % (9.3-17.3); White Blood Count 4.1 T/CUMM (4-12)
[2018-08-15 03:20] LABS: Platelet Count 39 T/CUMM (130-400)
[2018-08-15 03:29] LABS: INR 1.1; PT Patient Result 11.4 SECS; Partial Thromboplastin Time 25.9 SECS (0-40)
[2018-08-15 03:35] LABS: Albumin 3.9 G/DL (3.4-5.0); Bilirubin,Total 1.3 MG/DL (0.2-1.0); Calcium 8.4 MG/DL (8.5-10.1); Osmolality,Calculated 288.8 MOS/KG (273-304); Total Protein 7.1 G/DL (6.4-8.3)
[2018-08-15 04:06] LABS: Band Neutrophils 4 % (0-10); Hypochromasia Slight; Lymphocytes 5 % (20-55); Platelet Estimate Decreased; Segmented Neutrophils 89 % (50-85)
[2018-08-15 04:07] LABS: Total Cells Counted 100
[2018-08-15] MEDS ORDERED: VANCOMYCIN INJ 1,000 MG in SODIUM CHLORIDE 0.9% 250 ML IV ONE ×2 (06:00→23:04)
[2018-08-15] MEDS ORDERED: HEPARIN/NACL 0.9% 2 UNITS/ML 500 ML IV ONE ×3 (07:16→09:32)
[2018-08-15] MEDS ORDERED: LIDOCAINE 1% 20 ML VIAL ONE (07:16)
[2018-08-15] MEDS ORDERED: fentaNYL 100 MCG/2 ML VIAL ONE ×2 (08:12→09:38)
[2018-08-15] MEDS ORDERED: MIDAZOLAM 2 MG/2 ML VIAL ONE ×2 (08:12→09:37)
[2018-08-15] MEDS: INSULIN REGULAR 100 UNIT/ML SUBCUT SCH ×4 (08:53→22:01)
[2018-08-15 10:12] LABS: VBG Base Excess -2.1 MEQ/L (0-4); VBG HCO3 22.3 MEQ/L (24-28); VBG Oxygen Saturation 72.6 %; VBG PCO2 63.9 MMHG (41-51); VBG PH 7.226
[2018-08-15] MEDS: GABAPENTIN 100 MG CAPSULE PO SCH ×3 (11:43→22:05)
[2018-08-15] MEDS: CALCIUM ACETATE 667 MG CAPSULE PO SCH ×3 (11:43→17:10)
[2018-08-15] MEDS: FOLIC ACID 1 MG TABLET PO SCH (13:27)
[2018-08-15] MEDS: MULTIVITAMIN (CENTRUM) TABLET PO SCH (13:27)
[2018-08-15] MEDS: PANTOPRAZOLE 40 MG TABLET PO SCH (13:28)
[2018-08-15] MEDS: amLODIPine 10 MG TABLET PO SCH (13:28)
[2018-08-15] MEDS: MINOXIDIL 2.5 MG TABLET PO SCH (13:28)
[2018-08-15] MEDS ORDERED: HEPARIN 10,000 UNIT/10 ML VIAL IV SCH (14:00)
[2018-08-15] MEDS: SIMVASTATIN 40 MG TABLET PO SCH (22:05)
[2018-08-16 06:12] LABS: Basophils % 0.7 % (0.0-0.8); Eosinophils # 0.1 10*3/uL (0.0-0.87); Eosinophils % 4.3 % (0.00-10.9); Hematocrit 29.1 VOL% (35.7-47.0); Hemoglobin 8.9 GM/DL (12.0-16.0); Lymphocytes # 0.3 10*3/uL (1.4-4.0); Lymphocytes % 9.3 % (21.3-54.2); Mean Corpuscular HGB Conc 30.6 GM/DL (32-36); Mean Corpuscular Volume 102.8 FL (87-102); Monocytes % 10.3 % (1.7-12.7); Neutrophils % 75.4 % (38.7-73.9); Red Blood Count 2.83 MC/CUMM (3.8-5.5); Red Cell Distribution Width 16.2 % (9.3-17.3)
[2018-08-16 06:18] LABS: Platelet Count 26 T/CUMM (130-400)
[2018-08-16 06:31] LABS: Hypochromasia 1+; Ovalocytes Slight; Platelet Estimate Decreased
[2018-08-16 06:35] LABS: Osmolality,Calculated 279.7 MOS/KG (273-304)
[2018-08-16 06:55] LABS: Albumin 3.1 G/DL (3.4-5.0); Bilirubin,Total 1.1 MG/DL (0.2-1.0); Calcium 7.6 MG/DL (8.5-10.1); Osmolality,Calculated 279.7 MOS/KG (273-304); Total Protein 5.8 G/DL (6.4-8.3)
[2018-08-16] MEDS: INSULIN REGULAR 100 UNIT/ML SUBCUT SCH ×4 (07:30→22:47)
[2018-08-16] MEDS: FOLIC ACID 1 MG TABLET PO SCH (08:28)
[2018-08-16] MEDS: MULTIVITAMIN (CENTRUM) TABLET PO SCH (08:29)
[2018-08-16] MEDS: MINOXIDIL 2.5 MG TABLET PO SCH (08:29)
[2018-08-16] MEDS: CALCIUM ACETATE 667 MG CAPSULE PO SCH ×3 (08:29→16:39)
[2018-08-16] MEDS: PANTOPRAZOLE 40 MG TABLET PO SCH (08:30)
[2018-08-16] MEDS: GABAPENTIN 100 MG CAPSULE PO SCH ×3 (08:30→21:01)
[2018-08-16] MEDS: amLODIPine 10 MG TABLET PO SCH (08:30)
[2018-08-16] MEDS: SIMVASTATIN 40 MG TABLET PO SCH (21:01)
[2018-08-17 06:14] LABS: Basophils % 0.3 % (0.0-0.8); Eosinophils # 0.1 10*3/uL (0.0-0.87); Eosinophils % 3.3 % (0.00-10.9); Hematocrit 28.4 VOL% (35.7-47.0); Hemoglobin 8.6 GM/DL (12.0-16.0); Immature Granulocytes % 0.3 %; Immature Granulocytes Absolute 0.01 #; Lymphocytes # 0.5 10*3/uL (1.4-4.0); Lymphocytes % 11.6 % (21.3-54.2); Mean Corpuscular HGB Conc 30.3 GM/DL (32-36); Mean Corpuscular Volume 103.6 FL (87-102); Monocytes % 10.4 % (1.7-12.7); Neutrophils % 74.1 % (38.7-73.9); Red Blood Count 2.74 MC/CUMM (3.8-5.5); Red Cell Distribution Width 15.9 % (9.3-17.3)
[2018-08-17 06:23] LABS: Calcium 8.4 MG/DL (8.5-10.1)
[2018-08-17 06:37] LABS: Platelet Count 33 T/CUMM (130-400)
[2018-08-17 06:41] LABS: Hypochromasia 1+; Ovalocytes Slight; Platelet Estimate Decreased
[2018-08-17] MEDS: INSULIN REGULAR 100 UNIT/ML SUBCUT SCH ×2 (07:40→11:56)
[2018-08-17] MEDS: GABAPENTIN 100 MG CAPSULE PO SCH (08:22)
[2018-08-17] MEDS ORDERED: MAGNESIUM HYDROXIDE SUSP 30 ML UDCUP PO ONE (08:22)
[2018-08-17] MEDS: amLODIPine 10 MG TABLET PO SCH (08:22)
[2018-08-17] MEDS: MULTIVITAMIN (CENTRUM) TABLET PO SCH (08:22)
[2018-08-17] MEDS: CALCIUM ACETATE 667 MG CAPSULE PO SCH ×2 (08:22→12:51)
[2018-08-17] MEDS: FOLIC ACID 1 MG TABLET PO SCH (08:22)
[2018-08-17] MEDS: MINOXIDIL 2.5 MG TABLET PO SCH (08:22)
[2018-08-17] MEDS: PANTOPRAZOLE 40 MG TABLET PO SCH (08:22)
[2018-08-17 13:08] VITALS: BP 132/42
== END 2018-08-17 14:45 | disposition home or self-care (01) | DRG 228 ==
LOC: N.CC 17:16 → N.TELES 08-16 13:20
PROVIDERS: ADMIT Internal Medicine Clinical Cardiac Electrophysiology; ATTEND Internal Medicine Clinical Cardiac Electrophysiology
PROC: CLMICRA (2018-08-15 08:15)

== ENCOUNTER 2018-12-22 10:23 | Inpatient (IN) ==
[2018-12-22] MEDS ORDERED: NALOXONE 0.4 MG/ML VIAL ONE (10:43)
[2018-12-22] MEDS ORDERED: NALOXONE 0.4 MG/ML VIAL IV STA (10:50)
[2018-12-22 12:05] LABS: Basophils % 0.6 % (0.0-0.8); Eosinophils % 1.2 % (0.00-10.9); Hematocrit 36.4 VOL% (35.7-47.0); Hemoglobin 10.8 GM/DL (12.0-16.0); Immature Granulocytes % 0.6 %; Immature Granulocytes Absolute 0.02 #; Lymphocytes # 0.5 10*3/uL (1.4-4.0); Lymphocytes % 14.3 % (21.3-54.2); Mean Corpuscular HGB Conc 29.7 GM/DL (32-36); Mean Corpuscular Volume 107.7 FL (87-102); Monocytes % 6.5 % (1.7-12.7); Neutrophils % 76.8 % (38.7-73.9); Red Blood Count 3.38 MC/CUMM (3.8-5.5); Red Cell Distribution Width 17.7 % (9.3-17.3); White Blood Count 3.2 T/CUMM (4-12)
[2018-12-22 12:08] LABS: Platelet Count 37 T/CUMM (130-400)
[2018-12-22 12:24] LABS: Albumin 2.8 G/DL (3.4-5.0); Bilirubin,Total 1.1 MG/DL (0.2-1.0); Calcium 9.6 MG/DL (8.5-10.1); Osmolality,Calculated 297.1 MOS/KG (273-304); Total Protein 6.6 G/DL (6.4-8.3)
[2018-12-22] MEDS: hydrALAZINE 20 MG/1 ML VIAL IV PRN (13:17)
[2018-12-22 13:42] LABS: ABG Base Excess -1.3 MMOL/L (-2.5-2.5); ABG HCO3 22.9 MMOL/L (20-26); ABG Oxygen Saturation 75.1 % (95-100); ABG PCO2 39.7 MM HG (35-48); ABG PH 7.383 (7.35-7.45); ABG PO2 44.9 MM HG (80-95); ABG TCO2 21.1 MMOL/L (23-27)
[2018-12-22 14:57] LABS: Allen Test Positive; Pt O2 Delivery Device Ventilator
[2018-12-22 14:59] LABS: ABG Base Excess -1.5 MMOL/L (-2.5-2.5); ABG HCO3 23.2 MMOL/L (20-26); ABG TCO2 19.1 MMOL/L (23-27)
[2018-12-22] MEDS ORDERED: hydrALAZINE 20 MG/1 ML VIAL IV ONE (16:09)
[2018-12-22] MEDS: amLODIPine 10 MG TABLET PO SCH (16:55)
[2018-12-22] MEDS ORDERED: cloNIDine 0.3 MG/24 HR PATCH TRANSDERM SCH (18:00)
[2018-12-22] MEDS: LABETALOL 20 MG/4 ML SYRINGE IV PRN (23:55)
[2018-12-23 04:25] LABS: ABG Base Excess -2.4 MMOL/L (-2.5-2.5); ABG HCO3 20.8 MMOL/L (20-26); ABG PCO2 31.2 MM HG (35-48); ABG PH 7.441 (7.35-7.45); ABG PO2 188.8 MM HG (80-95); ABG TCO2 21.7 MMOL/L (23-27); Allen Test Positive; Pt O2 Delivery Device Ventilator
[2018-12-23 04:29] LABS: Basophils % 0.4 % (0.0-0.8); Hematocrit 40.2 VOL% (35.7-47.0); Hemoglobin 12.3 GM/DL (12.0-16.0); Immature Granulocytes % 0.5 %; Immature Granulocytes Absolute 0.05 #; Lymphocytes # 0.5 10*3/uL (1.4-4.0); Lymphocytes % 4.7 % (21.3-54.2); Mean Corpuscular HGB Conc 30.6 GM/DL (32-36); Mean Corpuscular Volume 103.3 FL (87-102); Mean Platelet Volume 14.1 FL (9.6-12.0); Monocytes % 7.8 % (1.7-12.7); Neutrophils % 86.6 % (38.7-73.9); Red Blood Count 3.89 MC/CUMM (3.8-5.5); White Blood Count 10.4 T/CUMM (4-12)
[2018-12-23 04:33] LABS: Platelet Count 61 T/CUMM (130-400)
[2018-12-23 04:48] LABS: Osmolality,Calculated 302.8 MOS/KG (273-304)
[2018-12-23 05:09] LABS: Band Neutrophils 1 % (0-10); Lymphocytes 8 % (20-55); Segmented Neutrophils 90 % (50-85); Total Cells Counted 100
[2018-12-23 05:10] LABS: Platelet Estimate Decreased; Polychromasia Few
[2018-12-23] MEDS: amLODIPine 10 MG TABLET PO SCH (10:12)
[2018-12-23] MEDS ORDERED: DEXTROSE 5% LACTATED RINGERS 1,000 ML IV SCH (13:30)
[2018-12-23] MEDS: FOLIC ACID 1 MG TABLET PO SCH (14:42)
[2018-12-23] MEDS: OLOPATADINE 0.1% OPH SOLN 5 ML BOTTLE BOTH EYES SCH ×2 (15:43→20:08)
[2018-12-23] MEDS ORDERED: ACETAMINOPHEN 325 MG TABLET PO PRN (16:18)
[2018-12-23] MEDS: CALCIUM ACETATE 667 MG CAPSULE PO SCH (16:49)
[2018-12-23] MEDS: ATORVASTATIN 40 MG TABLET PO SCH (20:08)
[2018-12-24 03:46] LABS: ABG Base Excess 3.1 MMOL/L (-2.5-2.5); ABG HCO3 22.5 MMOL/L (20-26); ABG Oxygen Saturation 98.4 % (95-100); ABG PCO2 21.8 MM HG (35-48); ABG TCO2 23.1 MMOL/L (23-27); Allen Test Positive; Pt O2 Delivery Device Ventilator
[2018-12-24 03:51] LABS: ABG PH 7.631 (7.35-7.45)
[2018-12-24 04:31] LABS: Basophils % 0.3 % (0.0-0.8); Eosinophils % 0.1 % (0.00-10.9); Hematocrit 33.6 VOL% (35.7-47.0); Hemoglobin 10.5 GM/DL (12.0-16.0); Immature Granulocytes % 0.5 %; Immature Granulocytes Absolute 0.04 #; Lymphocytes # 0.7 10*3/uL (1.4-4.0); Lymphocytes % 8.9 % (21.3-54.2); Mean Corpuscular HGB Conc 31.3 GM/DL (32-36); Mean Corpuscular Volume 101.5 FL (87-102); Mean Platelet Volume 13.5 FL (9.6-12.0); Neutrophils % 81.2 % (38.7-73.9); Red Blood Count 3.31 MC/CUMM (3.8-5.5); Red Cell Distribution Width 17.7 % (9.3-17.3); White Blood Count 7.8 T/CUMM (4-12)
[2018-12-24 04:39] LABS: Platelet Count 38 T/CUMM (130-400)
[2018-12-24 04:51] LABS: Prealbumin 5.8 MG/DL (20-40)
[2018-12-24 05:00] LABS: Hypochromasia 1+; Ovalocytes Slight; Platelet Estimate Decreased
[2018-12-24 05:15] LABS: Calcium 8.5 MG/DL (8.5-10.1); Osmolality,Calculated 291.4 MOS/KG (273-304)
[2018-12-24 07:39] LABS: ABG Base Excess 2.3 MMOL/L (-2.5-2.5); ABG HCO3 25.4 MMOL/L (20-26); ABG Oxygen Saturation 96.5 % (95-100); ABG PCO2 33.8 MM HG (35-48); ABG PH 7.493 (7.35-7.45); ABG TCO2 26.4 MMOL/L (23-27); Pt O2 Delivery Device Ventilator
[2018-12-24] MEDS: OLOPATADINE 0.1% OPH SOLN 5 ML BOTTLE BOTH EYES SCH ×2 (08:00→22:01)
[2018-12-24] MEDS: CALCIUM ACETATE 667 MG CAPSULE PO SCH ×3 (08:00→16:28)
[2018-12-24] MEDS: FOLIC ACID 1 MG TABLET PO SCH (08:00)
[2018-12-24] MEDS ORDERED: VANCOMYCIN INJ 500 MG in SODIUM CHLORIDE 0.9% 100 ML IV PRN (08:10)
[2018-12-24] MEDS ORDERED: PIPERACILLIN/TAZOBACTAM 3,375 MG in SODIUM CHLORIDE 0.9% 100 ML IV SCH (08:30)
[2018-12-24] MEDS ORDERED: VANCOMYCIN INJ 1,250 MG in SODIUM CHLORIDE 0.9% 250 ML IV ONE (11:00)
[2018-12-24] MEDS: amLODIPine 10 MG TABLET PO SCH (11:15)
[2018-12-24] MEDS ORDERED: CEFEPIME 1,000 MG in SODIUM CHLORIDE 0.9% 100 ML IV ONE (15:30)
[2018-12-24] MEDS: metroNIDAZOLE INJ 500 MG in PREMIX 1 EACH IV SCH ×2 (16:20→23:55)
[2018-12-24] MEDS: ATORVASTATIN 40 MG TABLET PO SCH (22:04)
[2018-12-25] MEDS ORDERED: MORPHINE 4 MG/1 ML VIAL IV PRN (03:28)
[2018-12-25 04:05] LABS: ABG Base Excess 0.8 MMOL/L (-2.5-2.5); ABG HCO3 25.1 MMOL/L (20-26); ABG Oxygen Saturation 98.8 % (95-100); ABG PCO2 37.9 MM HG (35-48); ABG PH 7.427 (7.35-7.45); ABG TCO2 22.4 MMOL/L (23-27)
[2018-12-25 04:38] LABS: Basophils % 0.2 % (0.0-0.8); Eosinophils % 0.4 % (0.00-10.9); Hematocrit 34.9 VOL% (35.7-47.0); Hemoglobin 10.6 GM/DL (12.0-16.0); Immature Granulocytes % 0.3 %; Immature Granulocytes Absolute 0.03 #; Lymphocytes # 0.7 10*3/uL (1.4-4.0); Lymphocytes % 7.7 % (21.3-54.2); Mean Corpuscular HGB Conc 30.4 GM/DL (32-36); Mean Corpuscular Volume 103.9 FL (87-102); Mean Platelet Volume 13.6 FL (9.6-12.0); Monocytes % 8.6 % (1.7-12.7); Neutrophils % 82.8 % (38.7-73.9); Red Blood Count 3.36 MC/CUMM (3.8-5.5); Red Cell Distribution Width 17.5 % (9.3-17.3); White Blood Count 9.2 T/CUMM (4-12)
[2018-12-25 04:46] LABS: Platelet Count 33 T/CUMM (130-400)
[2018-12-25 05:00] LABS: Calcium 8.5 MG/DL (8.5-10.1); Osmolality,Calculated 300.5 MOS/KG (273-304)
[2018-12-25 05:12] LABS: Hypochromasia 1+; Ovalocytes Slight; Platelet Estimate Decreased
[2018-12-25] MEDS: metroNIDAZOLE INJ 500 MG in PREMIX 1 EACH IV SCH ×3 (06:24→23:58)
[2018-12-25] MEDS: CALCIUM ACETATE 667 MG CAPSULE PO SCH ×3 (10:23→18:13)
[2018-12-25] MEDS: OLOPATADINE 0.1% OPH SOLN 5 ML BOTTLE BOTH EYES SCH ×2 (10:23→21:48)
[2018-12-25] MEDS: FOLIC ACID 1 MG TABLET PO SCH (10:24)
[2018-12-25] MEDS ORDERED: VANCOMYCIN INJ 500 MG in SODIUM CHLORIDE 0.9% 100 ML IV ONE (14:00)
[2018-12-25 16:33] LABS: INR 1.1; Partial Thromboplastin Time 28.7 SECS (20.8-36.0)
[2018-12-25] MEDS ORDERED: CEFEPIME 500 MG in SODIUM CHLORIDE 0.9% 100 ML IV SCH (21:00)
[2018-12-25] MEDS: ATORVASTATIN 40 MG TABLET PO SCH (21:48)
[2018-12-25] MEDS: CEFEPIME 500 MG in SODIUM CHLORIDE 0.9% 100 ML IV SCH (22:01)
[2018-12-26 04:16] LABS: ABG Base Excess 2.3 MMOL/L (-2.5-2.5); ABG Oxygen Saturation 98.2 % (95-100); ABG PCO2 37.1 MM HG (35-48); ABG PH 7.464 (7.35-7.45); ABG PO2 122.2 MM HG (80-95); ABG TCO2 27.2 MMOL/L (23-27)
[2018-12-26 04:49] LABS: Osmolality,Calculated 288.8 MOS/KG (273-304)
[2018-12-26 05:23] LABS: Basophils % 0.6 % (0.0-0.8); Eosinophils # 0.3 10*3/uL (0.0-0.87); Eosinophils % 4.5 % (0.00-10.9); Hematocrit 34.9 VOL% (35.7-47.0); Hemoglobin 10.7 GM/DL (12.0-16.0); Immature Granulocytes % 0.4 %; Immature Granulocytes Absolute 0.03 #; Lymphocytes # 0.5 10*3/uL (1.4-4.0); Lymphocytes % 6.6 % (21.3-54.2); Mean Corpuscular HGB Conc 30.7 GM/DL (32-36); Mean Corpuscular Volume 102.9 FL (87-102); Monocytes % 9.7 % (1.7-12.7); Neutrophils % 78.2 % (38.7-73.9); Red Blood Count 3.39 MC/CUMM (3.8-5.5); Red Cell Distribution Width 16.8 % (9.3-17.3); White Blood Count 6.9 T/CUMM (4-12)
[2018-12-26 05:26] LABS: Platelet Count 33 T/CUMM (130-400)
[2018-12-26 05:38] LABS: Platelet Estimate Decreased
[2018-12-26] MEDS: CALCIUM ACETATE 667 MG CAPSULE PO SCH ×3 (08:27→17:22)
[2018-12-26] MEDS: metroNIDAZOLE INJ 500 MG in PREMIX 1 EACH IV SCH ×3 (08:27→22:26)
[2018-12-26] MEDS: FOLIC ACID 1 MG TABLET PO SCH (09:19)
[2018-12-26] MEDS: OLOPATADINE 0.1% OPH SOLN 5 ML BOTTLE BOTH EYES SCH ×2 (09:19→20:55)
[2018-12-26] MEDS ORDERED: DEXAMETHASONE 10 MG/1 ML VIAL IV ONE (11:30)
[2018-12-26 12:46] LABS: ABG Base Excess 2.3 MMOL/L (-2.5-2.5); ABG HCO3 25.7 MMOL/L (20-26); ABG Oxygen Saturation 97.1 % (95-100); ABG PCO2 35.9 MM HG (35-48); ABG PH 7.473 (7.35-7.45); ABG PO2 92.9 MM HG (80-95); ABG TCO2 26.8 MMOL/L (23-27)
[2018-12-26] MEDS: LABETALOL 20 MG/4 ML SYRINGE IV PRN (16:14)
[2018-12-26] MEDS: hydrALAZINE 20 MG/1 ML VIAL IV PRN (17:23)
[2018-12-26] MEDS: ATORVASTATIN 40 MG TABLET PO SCH (20:55)
[2018-12-26] MEDS: INSULIN REGULAR 100 UNIT/ML SUBCUT SCH (20:55)
[2018-12-26] MEDS: CEFEPIME 500 MG in SODIUM CHLORIDE 0.9% 100 ML IV SCH (21:00)
[2018-12-26] MEDS: DEXAMETHASONE 4 MG/1 ML VIAL IV SCH (22:26)
[2018-12-27] MEDS: INSULIN REGULAR 100 UNIT/ML SUBCUT SCH ×6 (01:22→20:06)
[2018-12-27] MEDS: hydrALAZINE 20 MG/1 ML VIAL IV PRN ×2 (01:24→09:26)
[2018-12-27 04:51] LABS: ABG Base Excess -0.6 MMOL/L (-2.5-2.5); ABG Oxygen Saturation 98.6 % (95-100); ABG PCO2 34.4 MM HG (35-48); ABG PH 7.435 (7.35-7.45); ABG TCO2 20.4 MMOL/L (23-27)
[2018-12-27 05:03] LABS: Basophils % 0.2 % (0.0-0.8); Hemoglobin 12.3 GM/DL (12.0-16.0); Immature Granulocytes % 0.2 %; Immature Granulocytes Absolute 0.01 #; Lymphocytes # 0.3 10*3/uL (1.4-4.0); Lymphocytes % 5.7 % (21.3-54.2); Mean Corpuscular HGB Conc 31.5 GM/DL (32-36); Mean Corpuscular Volume 100.8 FL (87-102); Mean Platelet Volume 14.2 FL (9.6-12.0); Monocytes % 3.7 % (1.7-12.7); Neutrophils % 90.2 % (38.7-73.9); Platelet Count 49 T/CUMM (130-400); Red Blood Count 3.87 MC/CUMM (3.8-5.5); Red Cell Distribution Width 16.4 % (9.3-17.3); White Blood Count 5.7 T/CUMM (4-12)
[2018-12-27 05:29] LABS: Calcium 8.7 MG/DL (8.5-10.1); Osmolality,Calculated 293.2 MOS/KG (273-304)
[2018-12-27 05:59] LABS: Lymphocytes 6 % (20-55); Segmented Neutrophils 92 % (50-85); Total Cells Counted 100
[2018-12-27 06:00] LABS: Anisocytosis Slight; Macrocytosis Slight; Platelet Estimate Decreased
[2018-12-27 06:01] LABS: Ovalocytes Few
[2018-12-27] MEDS: metroNIDAZOLE INJ 500 MG in PREMIX 1 EACH IV SCH ×3 (06:22→23:52)
[2018-12-27] MEDS ORDERED: INSULIN REGULAR 100 UNIT/ML SUBCUT SCH (08:00)
[2018-12-27] MEDS: FOLIC ACID 1 MG TABLET PO SCH (08:02)
[2018-12-27] MEDS: OLOPATADINE 0.1% OPH SOLN 5 ML BOTTLE BOTH EYES SCH ×2 (08:02→20:07)
[2018-12-27] MEDS: CALCIUM ACETATE 667 MG CAPSULE PO SCH ×3 (08:02→17:01)
[2018-12-27 10:14] LABS: ABG Base Excess 1.9 MMOL/L (-2.5-2.5); ABG HCO3 26.2 MMOL/L (20-26); ABG Oxygen Saturation 99.7 % (95-100); ABG PCO2 23.8 MM HG (35-48); ABG PH 7.582 (7.35-7.45); ABG TCO2 19.6 MMOL/L (23-27)
[2018-12-27] MEDS: DEXAMETHASONE 4 MG/1 ML VIAL IV SCH ×2 (11:05→23:52)
[2018-12-27 12:30] LABS: ABG Base Excess 1.8 MMOL/L (-2.5-2.5); ABG HCO3 26.1 MMOL/L (20-26); ABG Oxygen Saturation 99.6 % (95-100); ABG PCO2 26.5 MM HG (35-48); ABG PH 7.548 (7.35-7.45); ABG TCO2 20.3 MMOL/L (23-27)
[2018-12-27] MEDS: LABETALOL 20 MG/4 ML SYRINGE IV PRN (15:00)
[2018-12-27] MEDS: DEXMEDETOMIDINE 200 MCG in SODIUM CHLORIDE 0.9% 48 ML IV PRN ×2 (15:41→21:59)
[2018-12-27] MEDS: ATORVASTATIN 40 MG TABLET PO SCH (20:06)
[2018-12-27] MEDS: CEFEPIME 500 MG in SODIUM CHLORIDE 0.9% 100 ML IV SCH (21:35)
[2018-12-28] MEDS: INSULIN REGULAR 100 UNIT/ML SUBCUT SCH ×4 (00:02→11:11)
[2018-12-28 03:56] LABS: ABG Base Excess -0.4 MMOL/L (-2.5-2.5); ABG HCO3 24.1 MMOL/L (20-26); ABG Oxygen Saturation 99.4 % (95-100); ABG PCO2 25.2 MM HG (35-48); ABG PH 7.528 (7.35-7.45); ABG TCO2 18.3 MMOL/L (23-27)
[2018-12-28 04:10] LABS: Hematocrit 37.1 VOL% (35.7-47.0); Hemoglobin 11.8 GM/DL (12.0-16.0); Immature Granulocytes % 0.6 %; Immature Granulocytes Absolute 0.03 #; Lymphocytes # 0.3 10*3/uL (1.4-4.0); Lymphocytes % 5.6 % (21.3-54.2); Mean Corpuscular HGB Conc 31.8 GM/DL (32-36); Mean Corpuscular Volume 98.4 FL (87-102); Neutrophils % 88.8 % (38.7-73.9); Platelet Count 42 T/CUMM (130-400); Red Blood Count 3.77 MC/CUMM (3.8-5.5); Red Cell Distribution Width 16.3 % (9.3-17.3)
[2018-12-28 04:19] LABS: Calcium 8.2 MG/DL (8.5-10.1); Osmolality,Calculated 297.2 MOS/KG (273-304)
[2018-12-28 04:32] LABS: Prealbumin 9.8 MG/DL (20-40)
[2018-12-28 04:37] LABS: Burr Cells Slight; Hypochromasia Slight; Ovalocytes Slight; Platelet Estimate Decreased
[2018-12-28] MEDS: metroNIDAZOLE INJ 500 MG in PREMIX 1 EACH IV SCH ×2 (07:00→14:41)
[2018-12-28] MEDS: CALCIUM ACETATE 667 MG CAPSULE PO SCH ×2 (09:33→12:17)
[2018-12-28] MEDS: FOLIC ACID 1 MG TABLET PO SCH (09:34)
[2018-12-28] MEDS: DEXMEDETOMIDINE 200 MCG in SODIUM CHLORIDE 0.9% 48 ML IV PRN (09:35)
[2018-12-28] MEDS: OLOPATADINE 0.1% OPH SOLN 5 ML BOTTLE BOTH EYES SCH (09:39)
[2018-12-28] MEDS: DEXAMETHASONE 4 MG/1 ML VIAL IV SCH (12:17)
[2018-12-28] MEDS ORDERED: VANCOMYCIN INJ 500 MG in SODIUM CHLORIDE 0.9% 100 ML IV ONE (13:00)
[2018-12-28 16:42] VITALS: BP 210/60
[2018-12-29 19:01] LABS: HIT Interpretation Negative (Negative)
== END 2018-12-28 15:37 | DRG 917 ==
LOC: EDUNIT# → EDBD → N.ED 10:23 → SUATTDRO 12:43 → N.EDINP 12:43 → N.ICU 13:23
PROVIDERS: ADMIT Internal Medicine; ATTEND Internal Medicine